=== PATIENT | female | born 1985 | race Caucasian/White ===

== ENCOUNTER 2019-10-02 12:47 | Emergency (ER) | payer MEDICAID ==
[2019-10-02] MEDS ORDERED: MORPHINE SULFATE 4 MG INJ IV ONE (14:04)
[2019-10-02] MEDS ORDERED: Zofran 4 MG/2 ML VIAL IV ONE (14:04)
[2019-10-02] MEDS ORDERED: Sodium Chloride 0.9% 1000 ML 1,000 ML IV SCH (14:15)
[2019-10-02 14:21] LABS: Absolute Neutrophil Ct (ANC) 14.49 (1.4-6.9); BASOPHIL % 0.2 % (0.0-0.4); Basophil (Absolute #) 0.04 (0-0.4); Eosinophil % 0.9 % (0.00-5.0); Eosinophil (Absolute #) 0.17 (0-0.5); Hematocrit 43.9 % (35-47); Hemoglobin 14.5 gm/dl (12.0-16.0); Lymphocyte (Absolute #) 1.99 (1.0-4.6); Mean Cell Volume 80.8 fl (78-100); Mean Corpuscular Hemoglobin 26.7 pg (26-32); Mean Platelet Volume 9.5 fl (7.5-11.0); Monocyte (Absolute #) 1.34 (0.0-1.3); Monocytes % 7.4 % (0.0-12.0); Neutrophil % 80.5 % (36.0-66.0); Platelet Count 305 K/mm3 (150-450); Red Blood Count 5.43 M/mm3 (4.1-5.4); Red Cell Distribution Width 14.3 % (11.5-14.0)
[2019-10-02] MEDS ORDERED: CLINDAMYCIN-D5W 900 MG/50 ML*** 900 MG/50 ML BAG IV STA (14:26)
[2019-10-02] MEDS ORDERED: Zofran 4 MG/2 ML VIAL ONE (14:29)
[2019-10-02] MEDS ORDERED: CLINDAMYCIN-D5W 900 MG/50 ML*** 900 MG/50 ML BAG IV ONE (14:29)
[2019-10-02] MEDS ORDERED: MORPHINE SULFATE 4 MG INJ ONE (14:29)
[2019-10-02] MEDS ORDERED: Sodium Chloride 0.9% 1000 ML 1,000 ML ONE (14:29)
[2019-10-02 14:31] LABS: ALBUMIN 4.1 g/dL (3.5-5.0); ALKALINE PHOSPHATASE 126 U/L (38-126); ANION GAP 10.8 MEQ/L (5-15); BLOOD UREA NITROGEN 9 mg/dL (7-17); CHLORIDE 107 mmol/L (98-107); Calcium 9.3 mg/dL (8.4-10.2); Carbon Dioxide 25 mmol/L (22-30); Creatinine 1 0.49 mg/dL (0.52-1.04); Glucose 100 mg/dL (74-106); Potassium 3.8 mmol/L (3.5-5.1); SGOT/AST 15 U/L (14-36); SGPT/ALT 14 U/L (0-35); SODIUM 139 mmol/L (137-145); Total Protein 7.7 g/dL (6.3-8.2)
--- NOTE | 2019-10-02 15:35 | ERPHSYRPT ---
- History of Present Illness Time Seen by Provider: 10/02/19 13:15 Source: patient Exam Limitations: no limitations Patient Subjective Stated Complaint: Pt states "About 4 days ago I started to get this infection on my left breast. It is large and red now." Triage Nursing Assessment: Pt presented alert and oriented X 3, skin pwd. Pt ambulates with an upright steady gait, able to ambulate with an upright steady gait. Physician History: Patient has 4-day history of pain swelling and abscess in the left breast just inferolateral to the nipple she has had as similar episodes on 2 occasions in the past which resolved spontaneously however this has grown in size it is surrounded by erythema. Timing/Duration: day(s) (4) Quality: painful Severity: severe Location: other (breast) Possible Causes: no cause identified Associated Symptoms: denies symptoms Allergies/Adverse Reactions: amoxicillin Allergy (Intermediate, Verified 10/02/19 13:07) Hives Hx Tetanus, Diphtheria Vaccination/Date Given: (unknown) Hx Influenza Vaccination/Date Given: No Hx Pneumococcal Vaccination/Date Given: No Immunizations Up to Date: Yes - Review of Systems Constitutional: No Fever, No Chills Eyes: No Symptoms Ears, Nose, & Throat: No Symptoms Respiratory: No Cough, No Dyspnea Cardiac: No Chest Pain, No Edema, No Syncope Abdominal/Gastrointestinal: No Abdominal Pain, No Nausea, No Vomiting, No Diarrhea Genitourinary Symptoms: No Dysuria Musculoskeletal: No Back Pain, No Neck Pain Skin: Other (Process with surrounding erythema left breast), No Rash Neurological: No Dizziness, No Focal Weakness, No Sensory Changes Psychological: No Symptoms Endocrine: No Symptoms All Other Systems: Reviewed and Negative - Past Medical History Pertinent Past Medical History: No - Past Surgical History Past Surgical History: No - Social History Smoking Status: Current every day smoker How long have you smoked: years Exposure to second hand smoke: Yes Drug Use: none Patient Lives Alone: No - Female History Hx Last Menstrual Period: 09/26/2019 Hx Now: (unknown) - Nursing Vital Signs Nursing Vital Signs: Initial Vital Signs Temperature 98.9 F 10/02/19 13:00 Pulse Rate 130 H 10/02/19 13:00 Respiratory Rate 20 10/02/19 13:00 Blood Pressure 143/96 10/02/19 13:00 O2 Sat by Pulse Oximetry 99 10/02/19 13:00 Pain Scale Pain Intensity 4 - Physical Exam General Appearance: no apparent distress, alert Eye Exam: PERRL/EOMI, eyes nml inspection Ears, Nose, Throat Exam: normal ENT inspection, pharynx normal, moist mucous membranes Neck Exam: normal inspection, non-tender, supple, full range of motion Respiratory Exam: normal breath sounds, lungs clear, No respiratory distress Cardiovascular Exam: regular rate/rhythm, normal heart sounds Gastrointestinal/Abdomen Exam: soft, mass, No tenderness Back Exam: normal inspection, normal range of motion, No CVA tenderness, No vertebral tenderness Extremity Exam: normal inspection, normal range of motion Neurologic Exam: alert, oriented x 3, cooperative, normal mood/affect, sensation nml, No motor deficits Skin Exam: other (Area of erythema and induration with central consistent with a large abscess left breast inferolateral to the nipple.) Lymphatic Exam: adenopathy SpO2 Interpretation: normal SpO2: 97 O2 Delivery: Room Air Procedures - Incision and Drainage Site: Breast Anesthesia: 1% Lidocaine cc's of anesthesia: 5 Blade Size: 11 I & D Procedure: betadine prep Results: large amount pus - Course Nursing assessment & vital signs reviewed: Yes Ordered Tests: Active Orders 24 hr Category Date Time Status BLOOD CULTURE Stat Lab 10/02/19 14:55 Received CBC W DIFF Stat Lab 10/02/19 14:04 Completed CMP Stat Lab 10/02/19 14:04 Completed Lactic Acid Stat Lab 10/02/19 14:04 Completed Medication Summary Generic Name Dose Route Start Last Admin Trade Name Freq PRN Reason Stop Dose Admin Sodium Chloride 1,000 mls @ 100 mls/hr 10/02/19 14:15 10/02/19 14:35 Sodium Chloride 0.9% 1000 Ml IV 11/01/19 14:14 100 mls/hr .Q10H ELANA Administration Discontinued Medications Generic Name Dose Route Start Last Admin Trade Name Freq PRN Reason Stop Dose Admin Clindamycin HCl/Dextrose 900 mg in 50 mls @ 100 mls/hr 10/02/19 14:26 14:34 Clindamycin-D5w 900 Mg/50 Ml IV 10/02/19 14:55 100 ml/hr STAT STA 100 mls/hr Administration Clindamycin HCl/Dextrose Confirm 10/02/19 14:29 Clindamycin-D5w 900 Mg/50 Ml Administered 10/02/19 14:30 Dose 900 mg in 50 mls @ ud IV .STK-MED ONE Morphine Sulfate 4 mg 10/02/19 14:04 10/02/19 14:34 Morphine Sulfate 4 Mg Inj IV 10/02/19 14:05 4 mg STAT ONE Administration Morphine Sulfate Confirm 10/02/19 14:29 Morphine Sulfate 4 Mg Inj Administered 10/02/19 14:30 Dose 4 mg .ROUTE .STK-MED ONE Ondansetron HCl 4 mg 10/02/19 14:04 10/02/19 14:35 Zofran 4 Mg/2 Ml Vial IV 10/02/19 14:05 4 mg STAT ONE Administration Ondansetron HCl Confirm 10/02/19 14:29 Zofran 4 Mg/2 Ml Vial Administered 10/02/19 14:30 Dose 4 mg .ROUTE .STK-MED ONE Lab/Rad Data: Laboratory Result Diagrams 10/02/19 14:04 10/02/19 14:04 Laboratory Results 10/02/19 10/02/19 10/02/19 Range/Units 14:04 14:04 14:04 WBC 18.0 H (4.0-10.5) K/mm3 RBC 5.43 H (4.1-5.4) M/mm3 Hgb 14.5 (12.0-16.0) gm/dl Hct 43.9 (35-47) % MCV 80.8 (78-100) fl MCH 26.7 (26-32) pg MCHC 33.0 (32-36) g/dl RDW 14.3 H (11.5-14.0) % Plt Count 305 (150-450) K/mm3 MPV 9.5 (7.5-11.0) fl Gran % 80.5 H (36.0-66.0) % Eos # (Auto) 0.17 (0-0.5) Absolute Lymphs (auto) 1.99 (1.0-4.6) Absolute Monos (auto) 1.34 H (0.0-1.3) Lymphocytes % 11.0 L (24.0-44.0) % Monocytes % 7.4 (0.0-12.0) % Eosinophils % 0.9 (0.00-5.0) % Basophils % 0.2 (0.0-0.4) % Absolute Granulocytes 14.49 H (1.4-6.9) Basophils # 0.04 (0-0.4) Sodium 139 (137-145) mmol/L Potassium 3.8 (3.5-5.1) mmol/L Chloride 107 (98-107) mmol/L Carbon Dioxide 25 (22-30) mmol/L Anion Gap 10.8 (5-15) MEQ/L BUN 9 (7-17) mg/dL Creatinine 0.49 L (0.52-1.04) mg/dL Estimated GFR > 60.0 ML/MIN Glucose 100 (74-106) mg/dL Lactic Acid 1.0 (0.4-2.0) Calcium 9.3 (8.4-10.2) mg/dL Total Bilirubin 0.60 (0.2-1.3) mg/dL AST 15 (14-36) U/L ALT 14 (0-35) U/L Alkaline Phosphatase 126 (38-126) U/L Serum Total Protein 7.7 (6.3-8.2) g/dL Albumin 4.1 (3.5-5.0) g/dL - Progress Progress: improved - Departure Departure Disposition: Home Clinical Impression: Abscess of breast Condition: Stable Critical Care Time: No Referrals: DOCTOR,NO FAMILY [Primary Care Provider] - Instructions: Abscess Incision and Drainage Prescriptions: Hydrocodone/APAP 5-325 Tab^^^ [[place] 5-325 Tablet^^^] 1 tab PO Q6HPRN PRN #10 tablet MDD 6 PRN Reason: Pain clindamycin HCL [Cleocin HCl] 300 mg PO TID 10 Days #30 capsule
[2019-10-02 16:13] VITALS: BP 136/74; PULSE 78; O2SAT 98
== END 2019-10-02 16:13 | disposition home or self-care (01) ==
LOC: ED 12:47
DX: N61.1 Abscess of the breast and nipple (principal); N64.4 Mastodynia; N63.23 Unspecified lump in the left breast, lower outer quadrant
CPT/HCPCS: 10060; 36000; 36415; 80053; 83605; 85025; 87040; 87070; 96360; 96365; 96374; 96375; 99284; J2270; J2405

== ENCOUNTER 2019-10-05 17:32 | Emergency (ER) | payer MEDICAID ==
[2019-10-05 18:15] VITALS: BP 138/87; PULSE 96; O2SAT 96
--- NOTE | 2019-10-05 18:34 | ERPHSYRPT ---
- History of Present Illness Time Seen by Provider: 10/05/19 18:30 Source: patient Exam Limitations: no limitations Patient Subjective Stated Complaint: pt here for a wound recheck of abscess to left breast, pt had I&D of breast with packing 3 days ago. she started on anitboitcs, Triage Nursing Assessment: pt alert, walked in, resp easy, skin w/d/p. pt has packing to left breast with a foul smell, she has dry drainage to gauze,this nurse took care of pt 3 days ago, and left breast less red and swollen,she has slughing of skin around packing site Physician History: Patient is a 34-year-old female presents to our ED for a wound check. Patient had a left breast incision and drainage performed 3 days ago. The wound was packed. Patient was discharged home on clindamycin. Patient has been doing well. The area of cellulitis appears to be improving. Patient has not followed up with a family doctor. She has been taking her antibiotics as prescribed. No fever. No nausea or vomiting. Pain is well controlled. Patient has no complaints. Timing/Duration: day(s) (3 days ago.) Severity: mild Associated Symptoms: denies symptoms Allergies/Adverse Reactions: amoxicillin Allergy (Intermediate, Verified 10/05/19 18:16) Hives Hx Tetanus, Diphtheria Vaccination/Date Given: (unknown) Hx Influenza Vaccination/Date Given: No Hx Pneumococcal Vaccination/Date Given: No Immunizations Up to Date: Yes - Review of Systems Constitutional: No Fever, No Chills Eyes: No Symptoms Ears, Nose, & Throat: No Symptoms Respiratory: No Symptoms, No Cough, No Dyspnea Cardiac: No Symptoms, No Chest Pain, No Edema, No Syncope Abdominal/Gastrointestinal: No Symptoms, No Abdominal Pain, No Nausea, No Vomiting, No Diarrhea Genitourinary Symptoms: No Symptoms, No Dysuria Musculoskeletal: No Symptoms, No Back Pain, No Neck Pain Skin: No Symptoms, No Rash Neurological: No Symptoms, No Dizziness, No Focal Weakness, No Sensory Changes Psychological: No Symptoms Endocrine: No Symptoms Hematologic/Lymphatic: No Symptoms All Other Systems: Reviewed and Negative - Past Medical History Pertinent Past Medical History: No - Past Surgical History Past Surgical History: No - Social History Smoking Status: Current every day smoker How long have you smoked: years Exposure to second hand smoke: Yes Drug Use: none Patient Lives Alone: No - Female History Hx Last Menstrual Period: 09/15 Hx Now: No - Nursing Vital Signs Nursing Vital Signs: Initial Vital Signs Pulse Rate 96 H 10/05/19 18:06 Respiratory Rate 18 10/05/19 18:06 Blood Pressure 138/87 10/05/19 18:06 O2 Sat by Pulse Oximetry 96 10/05/19 18:06 Pain Scale Pain Intensity 1 - Physical Exam General Appearance: no apparent distress, alert Eye Exam: PERRL/EOMI, eyes nml inspection Ears, Nose, Throat Exam: normal ENT inspection, TMs normal, pharynx normal, moist mucous membranes Neck Exam: normal inspection, non-tender, supple, full range of motion Respiratory Exam: normal breath sounds, lungs clear, No respiratory distress Cardiovascular Exam: regular rate/rhythm, normal heart sounds, normal peripheral pulses Gastrointestinal/Abdomen Exam: soft, normal bowel sounds, No tenderness, No mass Back Exam: normal inspection, normal range of motion, No CVA tenderness, No vertebral tenderness Extremity Exam: normal inspection, normal range of motion, pelvis stable Neurologic Exam: alert, oriented x 3, cooperative, normal mood/affect, nml cerebellar function, nml station & gait, sensation nml, No motor deficits Skin Exam: normal color, warm, dry, other (Left breast wound healing well. There is some exited the wound base. There is good granular tissue. No purulent drainage. ), No rash Lymphatic Exam: No adenopathy SpO2 Interpretation: normal SpO2: 96 O2 Delivery: Room Air - Progress Progress: improved Progress Note: 10/05/19 20:20 The wound is a healing well. Cellulitis much improved. Packing removed. No indication for repacking at this time. There was necrotic skin that was removed. Patient sent to wound clinic for further evaluation and treatment. Counseled pt/family regarding: diagnosis, need for follow-up - Departure Departure Disposition: Home Clinical Impression: Visit for wound check, Abscess of breast Condition: Stable Critical Care Time: No Referrals: DOCTOR,NO FAMILY [Primary Care Provider] - Additional Instructions: Discharge/Care Plan CLEMENTINAPRINCE WILLS was seen on 10/05/19 in the Emergency Room. The patient was counseled regarding Diagnosis,Lab results, Imaging studies, need for follow up and when to return to the Emergency Room. Prescriptions given: Discharge Note I have spoken with the patient and/or caregivers. I have explained the patient' s condition, diagnosis and treatment plan based on the information available to me at this time. I have answered the patient's and/or caregiver's questions and addressed any concerns. The patient and/or caregivers have as good understanding of the patient's diagnosis, condition and treatment plan as can be expected at this point. The vital signs have been stable. The patient's condition is stable and appropriate for discharge from the emergency department. The patient will pursue further outpatient evaluation with the primary care physician or other designated or consulting physician as outlined in the discharge instructions. The patient and/or caregivers are agreeable to this plan of care and follow-up instructions have been explained in detail. The patient and/or caregivers have received these instruction. The patient/and or caregivers are aware that any significant change in condition or worsening of symptoms should prompt an immediate return to this or the closest emergency department or call 911.
== END 2019-10-05 18:48 | disposition home or self-care (01) ==
LOC: ED 17:32
DX: Z48.01 Encounter for change or removal of surgical wound dressing (principal); N61.1 Abscess of the breast and nipple
CPT/HCPCS: 99283

== ENCOUNTER 2022-09-02 16:04 | Emergency (ER) | payer MEDICAID ==
--- NOTE | 2022-09-02 16:11 | ERPHSYRPT ---
- History of Present Illness Time Seen by Provider: 09/02/22 16:10 Source: patient Exam Limitations: no limitations Physician History: This is a 36-year-old overweight white female who has recurrent abscesses of the breast and axilla in the past and presents with a hint of a left axillary swelling and a significant right axillary abscess. History was obtained from the patient directly as well as additional history from the patient's significant other. Patient denies fever. She denies redness but noticed increased swelling and abscess in the right axilla. Timing/Duration: day(s) (Last 2 to 3 days) Quality: painful Severity: mild (To moderate) Location: axillary (R) Possible Causes: no cause identified Allergies/Adverse Reactions: amoxicillin Allergy (Intermediate, Verified 10/05/19 18:16) Hives Hx Tetanus, Diphtheria Vaccination/Date Given: (unknown) Hx Influenza Vaccination/Date Given: No Hx Pneumococcal Vaccination/Date Given: No Travel Risk - International Travel Have you traveled outside of the country in past 3 weeks: No - Coronavirus Screening Are you exhibiting any of the following symptoms?: No Close contact with a COVID-19 positive Pt in past 14-21 Days: No - Review of Systems Constitutional: No Symptoms Eyes: No Symptoms Ears, Nose, & Throat: No Symptoms Respiratory: No Symptoms Cardiac: No Symptoms Abdominal/Gastrointestinal: No Symptoms Genitourinary Symptoms: No Symptoms Musculoskeletal: No Symptoms Skin: Other (Moderately large abscess right axilla. Induration left axilla) Neurological: No Symptoms Psychological: No Symptoms Endocrine: No Symptoms Hematologic/Lymphatic: No Symptoms Immunological/Allergic: No Symptoms All Other Systems: Reviewed and Negative - Past Medical History Pertinent Past Medical History: No - Past Surgical History Past Surgical History: No - Social History Smoking Status: Current every day smoker How long have you smoked: years Exposure to second hand smoke: Yes Drug Use: none Patient Lives Alone: No - Nursing Vital Signs Nursing Vital Signs: Initial Vital Signs Temperature 97.8 F 09/02/22 16:10 Pulse Rate 130 H 09/02/22 16:10 Respiratory Rate 22 09/02/22 16:10 Blood Pressure 188/102 09/02/22 16:10 O2 Sat by Pulse Oximetry 98 09/02/22 16:10 Pain Scale Pain Intensity 6 - Physical Exam General Appearance: no apparent distress, alert, anxiety Eye Exam: PERRL/EOMI, eyes nml inspection Ears, Nose, Throat Exam: normal ENT inspection, moist mucous membranes Neck Exam: normal inspection, non-tender, supple, full range of motion Respiratory Exam: airway intact, No chest tenderness, No respiratory distress Cardiovascular Exam: tachycardia Gastrointestinal/Abdomen Exam: No tenderness Pelvic Exam: not done Rectal Exam: not done Back Exam: normal inspection, normal range of motion, No CVA tenderness, No vertebral tenderness Neurologic Exam: alert, oriented x 3, cooperative, still worker helper II-XII nml as tested, normal mood/affect, nml cerebellar function, nml station & gait, sensation nml Skin Exam: normal color, warm, dry Lymphatic Exam: No adenopathy SpO2 Interpretation: normal O2 Delivery: Room Air Procedures - Incision and Drainage Time of Procedure: 16:30 Site: Right axilla Anesthesia: 1% Lidocaine cc's of anesthesia: 3 Blade Size: 15 I & D Procedure: betadine prep Results: moderate amount pus Ordered Tests: Active Orders 24 hr Category Date Time Status Wound Care STAT Care 09/02/22 16:36 Ordered CULTURE,WOUND Stat Lab 09/02/22 16:36 Ordered Medication Summary Generic Name Dose Route Start Last Admin Trade Name Freq PRN Reason Stop Dose Admin Hydrocodone Bitart/Acetaminophen 1 tab 09/02/22 16:37 Hydrocodone/Apap 5/325 1 Tab Tablet PO 09/02/22 16:38 STAT ONE Trimethoprim/Sulfamethoxazole 1 tab 09/02/22 16:37 Smz/Tmp Ds Tablet 1 Tablet PO 09/02/22 16:38 STAT ONE - Progress Progress: improved Progress Note: 09/02/22 16:54 Medical decision making: This patient's medical issue today is of low complexity. She has a right axillary abscess. Based on the physical exam findings we opted for incision and drainage with culture of the pus that you did from the wound. We sent this for culture. Discharge plan was discussed with the patient which included placement of packing into the wound twice a day and using Bactrim DS antibiotics. She was told to make sure she does not allow the skin edges to close over before the deeper pocket heals in from the inside out. Counseled pt/family regarding: diagnosis, need for follow-up - Departure Departure Disposition: Home Clinical Impression: Abscess of right axilla Condition: Stable Critical Care Time: No Referrals: DOCTOR,NO FAMILY [Primary Care Provider] - Follow up/PCP as directed Additional Instructions: Packed the wound as discussed twice a day. Make sure you compress the area in the shower. Make sure you remove the packing before you get into the shower. Take your antibiotics as prescribed. Follow-up with your primary care provider for continued management. Prescriptions: Hydrocodone/APAP 5/325 [[place] 5/325 mg] 1 each PO Q8H PRN PRN #6 tablet MDD 3 PRN Reason: Pain Smz/Tmp Ds Tablet [Bactrim Ds Tablet] 1 udtab PO BID #14 tablet
[2022-09-02 16:17] VITALS: BP 188/102; PULSE 130; O2SAT 98
[2022-09-02] MEDS ORDERED: BACTRIM DS TABLET PO ONE ×2 (16:37→16:40)
[2022-09-02] MEDS ORDERED: NORCO 5/325 MG PO ONE (16:37)
[2022-09-02] MEDS ORDERED: NORCO 5/325 MG ONE (16:40)
== END 2022-09-02 17:05 | disposition home or self-care (01) ==
LOC: ED 16:04
DX: L02.411 Cutaneous abscess of right axilla (principal); Z79.891 Long term (current) use of opiate analgesic; Z72.0 Tobacco use
CPT/HCPCS: 10060; 87070; 99283; A9270-GY

== ENCOUNTER 2022-09-07 16:24 | Emergency (ER) | payer MEDICAID ==
--- NOTE | 2022-09-07 16:59 | ERPHSYRPT ---
- History of Present Illness Time Seen by Provider: 09/07/22 16:54 Source: patient, family Exam Limitations: no limitations Physician History: Patient is 36-year-old female came to the emergency room with the swelling and abscess on her right axilla for which patient was seen in the emergency room few days ago at that time small incision was put on to drain it and patient was put on antibiotic for 10 days. Patient states that the area where incision was put on has healed and now there is a swelling there and she feels like it is spreading under the skin. She denies any other symptoms include fever chills nausea vomiting headache. She denies any redness around the swelling. Timing/Duration: day(s) Associated Symptoms: denies symptoms Allergies/Adverse Reactions: amoxicillin Allergy (Intermediate, Verified 10/05/19 18:16) Hives Hx Tetanus, Diphtheria Vaccination/Date Given: (unknown) Hx Influenza Vaccination/Date Given: No Hx Pneumococcal Vaccination/Date Given: No Travel Risk - Vaccine Status Have you recieved a Covid-19 vaccination: No - Review of Systems Constitutional: No Fever, No Chills Eyes: No Symptoms Ears, Nose, & Throat: No Symptoms Respiratory: No Cough, No Dyspnea Cardiac: No Chest Pain, No Edema, No Syncope Abdominal/Gastrointestinal: No Abdominal Pain, No Nausea, No Vomiting, No Diarrhea Genitourinary Symptoms: No Dysuria Musculoskeletal: No Back Pain, No Neck Pain Skin: Induration (right axilla), No Rash Neurological: No Dizziness, No Focal Weakness, No Sensory Changes Psychological: No Symptoms Endocrine: No Symptoms All Other Systems: Reviewed and Negative - Past Medical History Pertinent Past Medical History: No - Past Surgical History Past Surgical History: No - Social History Smoking Status: Current every day smoker How long have you smoked: years Exposure to second hand smoke: Yes Drug Use: none Patient Lives Alone: No - Physical Exam General Appearance: no apparent distress Eye Exam: PERRL/EOMI Ears, Nose, Throat Exam: normal ENT inspection Neck Exam: normal inspection Respiratory Exam: normal breath sounds Cardiovascular Exam: regular rate/rhythm Gastrointestinal/Abdomen Exam: soft Back Exam: normal inspection Extremity Exam: normal inspection Neurologic Exam: alert, oriented x 3 (right axillary abscess, closed) - Course Nursing assessment & vital signs reviewed: Yes - Progress Progress: unchanged Counseled pt/family regarding: diagnosis, need for follow-up Medical Desision Making - Diagnostic Testing Diagnostic Testing: Diagnostic tests were ordered,analyzed, and reviewed by me and used in my medical decision making for this patient. Radiologic studies (if ordered) were read by me initially then discussed with the radiologist . - Risk of complications Minimal Risk: Minimal risk of morbidity - Departure Departure Disposition: Home Clinical Impression: Abscess of right axilla Condition: Stable Critical Care Time: No Referrals: DOCTOR,NO FAMILY [Primary Care Provider] - Follow up/PCP as directed Instructions: Skin Abscess Additional Instructions: Continue antibiotic. Keep the area clean with Betadine. Put a warm compress. Follow-up with primary care physician in 1 day or 2. You may require surgical attention by surgeon for further treatment. Discharge/Care Plan PRINCE MCRAE was seen on 09/07/22 in the Emergency Room. The patient was counseled regarding Diagnosis,Lab results, Imaging studies, need for follow up and when to return to the Emergency Room. Prescriptions given: Discharge Note I have spoken with the patient and/or caregivers. I have explained the patient's condition, diagnosis and treatment plan based on the information available to me at this time. I have answered the patient's and/or caregiver's questions and addressed any concerns. The patient and/or caregivers have as good understanding of the patient's diagnosis, condition and treatment plan as can be expected at this point. The vital signs have been stable. The patient's condition is stable and appropriate for discharge from the emergency department. The patient will pursue further outpatient evaluation with the primary care physician or other designated or consulting physician as outlined in the discharge instructions. The patient and/or caregivers are agreeable to this plan of care and follow-up instructions have been explained in detail. The patient and/or caregivers have received these instruction. The patient/and or caregivers are aware that any significant change in condition or worsening of symptoms should prompt an immediate return to this or the closest emergency department or call 911. PRINCE MCRAE was seen on 09/07/22 n the Emergency Room. At that time you were treated for an emergent condition, during your visit Laboratory, Radiology and/or other procedures may have been ordered. It is very important that you follow-up with your Primary Care Physician NO FAMILY DOCTOR within the next 24-48 hours to review your Emergency Room visit and the final results of testing that was ordered. Some test results such as Urine Cultures, Blood Cultures, and other cultures if ordered will not be finalized for 24-48 hours. If you do not have a Primary Care Provider please call the medical records department at [phone] ext [phone] to obtain a copy of your results or you may sign into our patient portal to obtain these results by visiting us @ [email or web address] and completing the following steps: 1. Click on the Patient Portal link 2. Click the Patient Self Enrollment Link to complete the enrollment form and entering your 3. Once the enrollment form is completed you will receive an email with a temporary ID and password at the email address you provided. 4. Next choose a user name and password. Your user name must be at least 4 characters long and your password must be at least 4 characters long. 5. Choose a security question from the list and provide your answer to the question. If you already have signed into the Health Portal you may access your Health Care Information 16/02 by the following steps: 1. Login to our website @ [email or web address] 2. Enter your original user name and password. FAQS The [facility] Health Portal is an online tool that contains your Lab Results, Radiology Reports, Visit History, Discharge Instructions and Health Summary Lab and Radiology Results will not be available for 72 hours on the portal. The Portal is a secure site, passwords are encryted and URLs are re-written so they cannot be copied and pasted. You and authorized family members are the only ones who can access your Portal. Also there is a timeout feature that protects your information if you leave the Portal page open. If you have technical difficulty please use the Contact Us link on the page this will allow you to submit any questions you have regarding the Portal or you may contact the Medical Record Department at [phone] ext [phone]. Prescriptions: Smz/Tmp Ds Tablet [Bactrim Ds Tablet] 1 udtab PO BID #20 tablet
[2022-09-07 17:26] VITALS: BP 170/124; PULSE 87; O2SAT 98
== END 2022-09-07 17:26 | disposition home or self-care (01) ==
LOC: ED 16:24
DX: L02.411 Cutaneous abscess of right axilla (principal); Z28.310 Unvaccinated for COVID-19; Z72.0 Tobacco use
CPT/HCPCS: 99281

== ENCOUNTER 2025-06-28 10:24 | Observation (INO) | payer MEDICAID ==
--- NOTE | 2025-06-28 10:29 | ERPHSYRPT ---
- History of Present Illness Time Seen by Provider: 06/28/25 10:27 Source: patient, family Exam Limitations: no limitations Physician History: This is a morbidly obese 39-year-old white female patient who denies past medical history and presents by private vehicle accompanied by family with increasing shortness of breath and increasing bilateral lower extremity swelling over the last 3 weeks. Her symptoms of swelling and shortness of breath were worse this morning. She went to urgent care where she was found to have a room air oxygen saturation level of 85 to 86%. Patient was then sent to our facility where upon arrival her room air oxygen saturation was 100%. She denies chest pain. She denies fever. She denies cough. Her heart rate was 129 bpm on arrival to the emergency department. She feels short of breath even though her oxygen saturation level is at 100%. She did states she had a single episode of severe back pain earlier over the last 3 weeks. Patient denies bleeding and clotting disorders. Patient also denies long travel via car or plane. Timing/Duration: week(s) (5), worse (Symptoms worse this morning) Severity of Dyspnea-Max: moderate Severity of Dyspnea-Current: moderate Possible Cause: no prior episodes Modifying Factors: Improves With: activity (Worsens), rest (Improves) Associated Symptoms: edema, No chest pain/discomfort, No wheezing Allergies/Adverse Reactions: amoxicillin Allergy (Intermediate, Verified 06/28/25 10:29) Hives Home Medications: No Reportable Medications [No Reported Medications] 06/28/25 [History] Hx Tetanus, Diphtheria Vaccination/Date Given: (unknown) Hx Influenza Vaccination/Date Given: No Hx Pneumococcal Vaccination/Date Given: No Travel Risk - International Travel Have you traveled outside of the country in past 3 weeks: No - Emerging Infectious Disease Are you exhibiting symptoms associated with any current EIDs: No Symptoms: Shortness of Breath - Review of Systems Constitutional: No Symptoms Eyes: No Symptoms Ears, Nose, & Throat: No Symptoms Respiratory: Dyspnea, Dyspnea on Exertion ([place]) Cardiac: No Symptoms Abdominal/Gastrointestinal: No Symptoms Genitourinary Symptoms: No Symptoms Musculoskeletal: No Symptoms Skin: No Symptoms Neurological: No Symptoms Psychological: No Symptoms Endocrine: No Symptoms Hematologic/Lymphatic: No Symptoms Immunological/Allergic: No Symptoms All Other Systems: Reviewed and Negative - Past Medical History Pertinent Past Medical History: No - Past Surgical History Past Surgical History: No - Social History Smoking Status: Current every day smoker How long have you smoked: years Exposure to second hand smoke: Yes Drug Use: none Patient Lives Alone: No - Nursing Vital Signs Nursing Vital Signs: Initial Vital Signs Temperature 97.8 F 06/28/25 10:25 Pulse Rate 126 H 06/28/25 10:25 Respiratory Rate 18 06/28/25 10:25 Blood Pressure 196/159 06/28/25 10:25 O2 Sat by Pulse Oximetry 100 06/28/25 10:25 Pain Scale Pain Intensity 0 - Physical Exam General Appearance: mild distress, alert, anxiety, obese Eye Exam: PERRL/EOMI, eyes nml inspection Ears, Nose, Throat Exam: hearing grossly normal, normal ENT inspection, normal pharynx Neck Exam: normal inspection, non-tender, supple, full range of motion Respiratory Exam: normal breath sounds, lungs clear, airway intact, No chest tenderness, No respiratory distress Cardiovascular/Chest Exam: tachycardia Abdominal/Gastrointestinal Exam: soft, normal bowel sounds, No tenderness Rectal Exam: not done Extremity Exam: normal range of motion, pedal edema (Patient has nonpitting edema from her feet to lower pannus of the abdomen) Neurologic Exam: alert, oriented x 3, cooperative, supervisor special services II-XII nml as tested, nml cerebellar function, nml station & gait, sensation nml Skin Exam: normal color, warm, dry Lymphatic Exam: No adenopathy SpO2 Interpretation: normal O2 Delivery: Room Air - Course Nursing assessment & vital signs reviewed: Yes EKG Interpreted by Me: RATE (124), Sinus Tach, NORMAL AXIS, NORMAL INTERVALS, Other (I see no acute ischemic changes on today's twelve-lead EKG. QTc is 443) Ordered Tests: Active Orders 24 hr Category Date Time Status Account Technician STAT Care 06/28/25 10:31 Active EKG-ER Only STAT Care 06/28/25 10:29 Completed IV Insertion STAT Care 06/28/25 10:29 Active Pulse Oximetry (ED) STAT Care 06/28/25 10:29 Active CHEST WITH CONTRAST [CT] Stat Exams 06/28/25 11:54 Completed VENOUS BILATERAL EXTREMITY [US] Stat Exams 06/28/25 11:55 Completed ARTERIAL BLOOD GASES Stat Lab 06/28/25 11:16 Completed BLOOD CULTURE Stat Lab 06/28/25 11:14 Received CBC W DIFF Stat Lab 06/28/25 11:07 Completed CMP Stat Lab 06/28/25 11:07 Completed CULTURE,URINE Stat Lab 06/28/25 10:51 Received D-DIMER QUANTITATIVE Stat Lab 06/28/25 11:07 Completed HCG QUALITATIVE, SERUM Stat Lab 06/28/25 Completed Lactic Acid Stat Lab 06/28/25 11:16 Completed MAGNESIUM Stat Lab 06/28/25 11:07 Completed NT PRO BNPII Stat Lab 06/28/25 11:07 Completed PROTIME WITH INR Stat Lab 06/28/25 11:07 Completed PTT Stat Lab 06/28/25 11:07 Completed TROPONIN Q4H Lab 06/28/25 11:07 Completed TROPONIN Q4H Lab 06/28/25 13:55 Completed TROPONIN Q4H Lab 06/28/25 18:30 Ordered UA W/RFX UR CULTURE Stat Lab 06/28/25 10:51 Completed Medication Summary Generic Name Dose Route Start Last Admin Trade Name Freq PRN Reason Stop Dose Admin Sodium Chloride 250 mls @ 250 mls/hr 06/28/25 12:00 06/28/25 13:37 Sodium Chloride 0.9% 250 Ml IV 06/28/25 12:59 Infused .Q1H ELANA Infusion Discontinued Medications Generic Name Dose Route Start Last Admin Trade Name Freq PRN Reason Stop Dose Admin Furosemide 40 mg 06/28/25 13:41 06/28/25 13:58 Furosemide 40 Mg/4 Ml Vial IV 06/28/25 13:42 40 mg STAT ONE Administration Furosemide Confirm 06/28/25 13:57 Furosemide 40 Mg/4 Ml Vial Administered 06/28/25 13:58 Dose 40 mg .ROUTE .STK-MED ONE Labetalol HCl 10 mg 06/28/25 11:41 06/28/25 11:45 Labetalol Hcl 20 Mg/4 Ml Disp.Syringe IV 06/28/25 11:42 10 mg STAT ONE Administration Labetalol HCl Confirm 06/28/25 11:44 Labetalol Hcl 20 Mg/4 Ml Disp.Syringe Administered 06/28/25 11:45 Dose 20 mg IV .STK-MED ONE Labetalol HCl 10 mg 06/28/25 13:35 06/28/25 13:36 Labetalol Hcl 20 Mg/4 Ml Disp.Syringe IV 06/28/25 13:36 10 mg STAT ONE Administration Lab/Rad Data: Laboratory Result Diagrams 06/28/25 11:07 06/28/25 11:07 Laboratory Results 06/28/25 06/28/25 06/28/25 Range/Units Unknown 13:55 11:18 WBC (3.98-10.04) x10^3/uL RBC (3.93-5.22) x10^6/uL Hgb (11.2-15.7) g/dL Hct (34.1-44.9) % MCV (79.4-94.8) fL MCH (25.6-32.2) pg MCHC (32.2-35.5) g/dL RDW (11.7-14.4) % Plt Count (182-369) x10^3/uL MPV (9.4-12.3) fL Gran % (34.0-71.1) % Immature Gran % (Auto) (0.001-0.429) % Nucleat RBC Rel Count (0.00-0.2) % Eos # (Auto) (0.04-0.36) x10^3/uL Immature Gran # (Auto) (0.001-0.031) x10^3u/L Absolute Lymphs (auto) (1.18-3.74) x10^3/uL Absolute Monos (auto) (0.24-0.86) x10^3/uL Absolute Nucleated RBC (0.00-0.012) x10^3u/L Lymphocytes % (19.3-51.7) % Monocytes % (4.7-12.5) % Eosinophils % (0.7-5.8) % Basophils % (0.1-1.2) % Absolute Granulocytes (1.56-6.13) x10^3/uL Basophils # (0.01-0.08) x10^3/uL PT (9.4-12.5) SECONDS INR (0.8-3.0) APTT (25.1-36.5) SECONDS D-Dimer (0.0-0.50) mg/L Puncture Site pCO2 (35-45) mmHg pO2 (75-100) mmHg Base Excess (-2.0-2.0) O2 Saturation (94-100) g/dF ABG pH (7.35-7.45) ABG HCO3 (22-28) ABG O2 Sat (Measured) (95-100) % Fabiano Test A-a Gradient a/A Ratio Hemoglobin Carboxyhemoglobin (0.0-6.9) % THgb Methemoglobin (1.4-1.5) % Temperature C POC O2 Flow Rate % Sodium (135-145) mmol/L Potassium (3.5-5.1) mmol/L Chloride (98-107) mmol/L Carbon Dioxide (22-30) mmol/L Anion Gap (5-15) MEQ/L BUN (7-17) mg/dL Creatinine (0.52-1.04) mg/dL Estimated GFR ML/MIN Glucose (74-106) mg/dL Lactic Acid (0.4-2.0) Calcium (8.4-10.2) mg/dL Magnesium (1.6-2.3) mg/dL Total Bilirubin (0.2-1.3) mg/dL AST (14-36) U/L ALT (0-35) U/L Alkaline Phosphatase (38-126) U/L Troponin I 0.025 (0.000-0.033) ng/mL NT-Pro-B Natriuret Pep (<300) pg/mL Serum Total Protein (6.3-8.2) g/dL Albumin (3.5-5.0) g/dL Serum HCG, Qual NEGATIVE (NEGATIVE) Urine Color (Yellow) Urine Appearance (Clear) Urine pH (4.6-8.0) Ur Specific [place] (1.005-1.030) Urine Protein (Negative) Urine Glucose (UA) (Negative) mg/dL Urine Ketones (Negative) Urine Blood (Negative) Urine Nitrite (Negative) Urine Bilirubin (Negative) Urine Urobilinogen (0.2) mg/dL Ur Leukocyte Esterase (Negative) U Hyaline Cast (Auto) (0-2) /LPF Urine Microscopic RBC (0-5) /HPF Urine Microscopic WBC (0-5) /HPF Ur Epithelial Cells (None Seen) /HPF Urine Bacteria (None Seen) /HPF Urine Culture Reflexed (NO) Influenza Type A Ag NEGATIVE (NEGATIVE) Influenza Type B Ag NEGATIVE (NEGATIVE) RSV (PCR) NEGATIVE (NEGATIVE) SARS-CoV-2 (PCR) NEGATIVE (NEGATIVE) Slides for Path Review 06/28/25 06/28/2525 Range/Units 11:16 11:07 11:07 WBC (3.98-10.04) x10^3/uL RBC (3.93-5.22) x10^6/uL Hgb (11.2-15.7) g/dL Hct (34.1-44.9) % MCV (79.4-94.8) fL MCH (25.6-32.2) pg MCHC (32.2-35.5) g/dL RDW (11.7-14.4) % Plt Count (182-369) x10^3/uL MPV (9.4-12.3) fL Gran % (34.0-71.1) % Immature Gran % (Auto) (0.001-0.429) % Nucleat RBC Rel Count (0.00-0.2) % Eos # (Auto) (0.04-0.36) x10^3/uL Immature Gran # (Auto) (0.001-0.031) x10^3u/L Absolute Lymphs (auto) (1.18-3.74) x10^3/uL Absolute Monos (auto) (0.24-0.86) x10^3/uL Absolute Nucleated RBC (0.00-0.012) x10^3u/L Lymphocytes % (19.3-51.7) % Monocytes % (4.7-12.5) % Eosinophils % (0.7-5.8) % Basophils % (0.1-1.2) % Absolute Granulocytes (1.56-6.13) x10^3/uL Basophils # (0.01-0.08) x10^3/uL PT 13.0 H (9.4-12.5) SECONDS INR 1.17 (0.8-3.0) APTT 22.2 L (25.1-36.5) SECONDS D-Dimer 1.27 H* (0.0-0.50) mg/L Puncture Site LEFT RADIAL pCO2 27 L (35-45) mmHg pO2 106 H (75-100) mmHg Base Excess -1.6 (-2.0-2.0) O2 Saturation 94.1 (94-100) g/dF ABG pH 7.49 H (7.35-7.45) ABG HCO3 20.6 L (22-28) ABG O2 Sat (Measured) 98.7 (95-100) % Fabiano Test YES A-a Gradient 10 a/A Ratio 0.91 Hemoglobin 12.2 Carboxyhemoglobin 3.9 (0.0-6.9) % THgb Methemoglobin 0.8 L (1.4-1.5) % Temperature 37.0 C POC O2 Flow Rate 21 % Sodium (135-145) mmol/L Potassium 3.8 (3.5-5.1) mmol/L Chloride (98-107) mmol/L Carbon Dioxide (22-30) mmol/L Anion Gap (5-15) MEQ/L BUN (7-17) mg/dL Creatinine (0.52-1.04) mg/dL Estimated GFR ML/MIN Glucose (74-106) mg/dL Lactic Acid 1.3 (0.4-2.0) Calcium (8.4-10.2) mg/dL Magnesium (1.6-2.3) mg/dL Total Bilirubin (0.2-1.3) mg/dL AST (14-36) U/L ALT (0-35) U/L Alkaline Phosphatase (38-126) U/L Troponin I 0.032 (0.000-0.033) ng/mL NT-Pro-B Natriuret Pep (<300) pg/mL Serum Total Protein (6.3-8.2) g/dL Albumin (3.5-5.0) g/dL Serum HCG, Qual (NEGATIVE) Urine Color (Yellow) Urine Appearance (Clear) Urine pH (4.6-8.0) Ur Specific [place] (1.005-1.030) Urine Protein (Negative) Urine Glucose (UA) (Negative) mg/dL Urine Ketones (Negative) Urine Blood (Negative) Urine Nitrite (Negative) Urine Bilirubin (Negative) Urine Urobilinogen (0.2) mg/dL Ur Leukocyte Esterase (Negative) U Hyaline Cast (Auto) (0-2) /LPF Urine Microscopic RBC (0-5) /HPF Urine Microscopic WBC (0-5) /HPF Ur Epithelial Cells (None Seen) /HPF Urine Bacteria (None Seen) /HPF Urine Culture Reflexed (NO) Influenza Type A Ag (NEGATIVE) Influenza Type B Ag (NEGATIVE) RSV (PCR) (NEGATIVE) SARS-CoV-2 (PCR) (NEGATIVE) Slides for Path Review 06/28/25 06/28/25 06/28/25 Range/Units 11:07 11:07 10:51 WBC 13.3 H (3.98-10.04) x10^3/uL RBC 5.42 H (3.93-5.22) x10^6/uL Hgb 11.9 (11.2-15.7) g/dL Hct 41.7 (34.1-44.9) % MCV 76.9 L (79.4-94.8) fL MCH 22.0 L (25.6-32.2) pg MCHC 28.5 L (32.2-35.5) g/dL RDW 17.0 H (11.7-14.4) % Plt Count 419 H (182-369) x10^3/uL MPV 9.4 (9.4-12.3) fL Gran % 68.4 (34.0-71.1) % Immature Gran % (Auto) 0.4 (0.001-0.429) % Nucleat RBC Rel Count 0.8 H (0.00-0.2) % Eos # (Auto) 0.14 (0.04-0.36) x10^3/uL Immature Gran # (Auto) 0.05 H (0.001-0.031) x10^3u/L Absolute Lymphs (auto) 3.19 (1.18-3.74) x10^3/uL Absolute Monos (auto) 0.71 (0.24-0.86) x10^3/uL Absolute Nucleated RBC 0.11 H (0.00-0.012) x10^3u/L Lymphocytes % 24.0 (19.3-51.7) % Monocytes % 5.3 (4.7-12.5) % Eosinophils % 1.1 (0.7-5.8) % Basophils % 0.8 (0.1-1.2) % Absolute Granulocytes 9.11 H (1.56-6.13) x10^3/uL Basophils # 0.10 H (0.01-0.08) x10^3/uL PT (9.4-12.5) SECONDS INR (0.8-3.0) APTT (25.1-36.5) SECONDS D-Dimer (0.0-0.50) mg/L Puncture Site pCO2 (35-45) mmHg pO2 (75-100) mmHg Base Excess (-2.0-2.0) O2 Saturation (94-100) g/dF ABG pH (7.35-7.45) ABG HCO3 (22-28) ABG O2 Sat (Measured) (95-100) % Fabiano Test A-a Gradient a/A Ratio Hemoglobin Carboxyhemoglobin (0.0-6.9) % THgb Methemoglobin (1.4-1.5) % Temperature C POC O2 Flow Rate % Sodium 135 (135-145) mmol/L Potassium 3.8 (3.5-5.1) mmol/L Chloride 103 (98-107) mmol/L Carbon Dioxide 22 (22-30) mmol/L Anion Gap 14.4 (5-15) MEQ/L BUN 19 H (7-17) mg/dL Creatinine 1.17 H (0.52-1.04) mg/dL Estimated GFR 61.6 ML/MIN Glucose 129 H (74-106) mg/dL Lactic Acid (0.4-2.0) Calcium 9.1 (8.4-10.2) mg/dL Magnesium 2.1 (1.6-2.3) mg/dL Total Bilirubin 0.70 (0.2-1.3) mg/dL AST 73 H (14-36) U/L ALT 139 H (0-35) U/L Alkaline Phosphatase 144 H (38-126) U/L Troponin I (0.000-0.033) ng/mL NT-Pro-B Natriuret Pep 66612 (<300) pg/mL Serum Total Protein 7.1 (6.3-8.2) g/dL Albumin 3.8 (3.5-5.0) g/dL Serum HCG, Qual (NEGATIVE) Urine Color Dark Yellow A (Yellow) Urine Appearance Cloudy A (Clear) Urine pH 5.5 (4.6-8.0) Ur Specific [place] 1.025 (1.005-1.030) Urine Protein 300 A (Negative) Urine Glucose (UA) Negative (Negative) mg/dL Urine Ketones Negative (Negative) Urine Blood Negative (Negative) Urine Nitrite Negative (Negative) Urine Bilirubin Small A (Negative) Urine Urobilinogen 1.0 A (0.2) mg/dL Ur Leukocyte Esterase Negative (Negative) U Hyaline Cast (Auto) 11-20 (0-2) /LPF Urine Microscopic RBC 0-2 (0-5) /HPF Urine Microscopic WBC 21-50 A (0-5) /HPF Ur Epithelial Cells Moderate A (None Seen) /HPF Urine Bacteria Moderate A (None Seen) /HPF Urine Culture Reflexed YES (NO) Influenza Type A Ag (NEGATIVE) Influenza Type B Ag (NEGATIVE) RSV (PCR) (NEGATIVE) SARS-CoV-2 (PCR) (NEGATIVE) Slides for Path Review YES - Progress Progress: re-examined Air Movement: fair Progress Note: 06/28/25 10:49 My medical decision making and the assignment of high complexity of this patient's medical issue today is based on review of the patient's past medical history, reviewed patient's medication list, reviewed patient drug allergy list, history present illness and physical findings on examination. The workup in this patient includes placement of an intravenous line, CBC, CMP, COVID swabs, chest x-ray versus CT a of the chest depending on the D-dimer level, BNP, troponin level, twelve-lead EKG. Will also order urinalysis test. Differential diagnosis includes but is not limited to congestive heart failure, renal failure, DVT, pulmonary embolus, myocardial infarction, arrhythmia, electrolyte abnormalities 06/28/25 15:26 I interpreted the patient's laboratory data results. Based on the laboratory data results, patient has significant CHF, significant elevation in her liver enzymes she also had a significantly elevated D-dimer level and we obtained CT scan of the chest with contrast and bilateral lower extremity venous Dopplers. Patient also has significant hypertension. The following radiographic studies final reports were interpreted by the radiologist and I reviewed the impression: Bilateral lower extremity venous Dopplers are negative for left and right DVT. The CT scan of the chest with contrast is negative for pulmonary embolus. There are no acute cardiopulmonary processes. There is abdominal anasarca and cardiomegaly present. I spoke with Dr. Reese, the telehospitalist is recreational specialist at this time. I reviewed the patient history, presenting complaint, physical findings on examination and workup results. He accepts the patient to be placed in observation. Blood Culture(s) Obtained: Yes Antibiotics given: No Counseled pt/family regarding: lab results, diagnosis, rad results Medical Desision Making - Independent Historian Additional History obtained from: Family - Diagnostic Testing Diagnostic test were ordered, analyzed, and reviewed by me: Yes Radiological Interpretation: Reviewed by me, Teleradiologist Report - Risk of complications The pt has a high risk of morbidity or mortality based on: Decision regarding hospitilization or escalation of hosp level of care - Departure Departure Disposition: Observation Clinical Impression: CHF (congestive heart failure), Hypertension, Tachycardia, Elevated LFTs Condition: Fair Critical Care Time: Yes Critical Care Time(excluding separately billable procedures): Critical 30-74 mins (50) Referrals: DOCTOR,NO FAMILY [Primary Care Provider, UNKNOWN] - Follow up/PCP as directed Instructions: Heart Failure
[2025-06-28 11:21] LABS: A-aADO2 10; ABG HEMOGLOBIN 12.2; ABG POTASSIUM 3.8 (3.5-5.1); ARTERIAL BLD GAS O2 SATURATION 98.7 % (95-100); ARTERIAL BLOOD GAS BASE EXCESS -1.6 (-2.0-2.0); ARTERIAL BLOOD GAS FIO2 21 %; ARTERIAL BLOOD GAS PCO2 27 mmHg (35-45); ARTERIAL BLOOD GAS PO2 106 mmHg (75-100); ARTERIAL BLOOD GAS TEMPERATURE 37.0 C; HCO3- 20.6 (22-28); HGB O2 SAT 94.1 g/dF (94-100); Methhemoglobin 0.8 % (1.4-1.5); paO2 pAO1 0.91
[2025-06-28 11:22] LABS: ABG SITE LEFT RADIAL; ALLEN TEST OK? YES
[2025-06-28 11:22] LABS: BASOPHIL % 0.8 % (0.1-1.2); Basophil (Absolute #) 0.10 x10^3/uL (0.01-0.08); Eosinophil (Absolute #) 0.14 x10^3/uL (0.04-0.36); Hematocrit 41.7 % (34.1-44.9); Hemoglobin 11.9 g/dL (11.2-15.7); IMMATURE GRAN # 0.05 x10^3u/L (0.001-0.031); IMMATURE GRAN % 0.4 % (0.001-0.429); Lymphocyte (Absolute #) 3.19 x10^3/uL (1.18-3.74); Mean Corpuscular Hemoglobin 22.0 pg (25.6-32.2); Mean Corpuscular Hgb Concent. 28.5 g/dL (32.2-35.5); Monocyte (Absolute #) 0.71 x10^3/uL (0.24-0.86); NUCLEATED RBC # 0.11 x10^3u/L (0.00-0.012); NUCLEATED RBC % 0.8 % (0.00-0.2); Platelet Count 419 x10^3/uL (182-369); Red Blood Count 5.42 x10^6/uL (3.93-5.22); White Blood Count 13.3 x10^3/uL (3.98-10.04)
[2025-06-28 11:44] LABS: INR 1.17 (0.8-3.0); PROTIME 13.0 SECONDS (9.4-12.5); PTT 22.2 SECONDS (25.1-36.5)
[2025-06-28] MEDS ORDERED: TRANDATE 20 MG/4 ML SYRINGE IV ONE ×2 (11:44→21:23)
[2025-06-28 11:45] LABS: Calcium 9.1 mg/dL (8.4-10.2); Carbon Dioxide 22.0 mmol/L (22-30); Creatinine 1 1.17 mg/dL (0.52-1.04); EST GLOMERULAR FILTRATION RATE 61.6 ML/MIN; Glucose 129.0 mg/dL (74-106); NT PRO BNPII 13700.0 pg/mL (<300); Potassium 3.8 mmol/L (3.5-5.1); SGOT/AST 73.0 U/L (14-36); SGPT/ALT 139.0 U/L (0-35); Total Protein 7.1 g/dL (6.3-8.2)
[2025-06-28] MEDS: TRANDATE 20 MG/4 ML SYRINGE IV ONE ×2 (11:45→13:36)
[2025-06-28 11:53] LABS: Slide Review 1 YES
[2025-06-28 12:01] LABS: INFLUENZA A NEGATIVE (NEGATIVE); INFLUENZA B NEGATIVE (NEGATIVE); RESPIRATORY SYNCTIAL VIRUS NEGATIVE (NEGATIVE); SARS-CoV-2 Xpert Express NEGATIVE (NEGATIVE)
[2025-06-28 12:18] LABS: HCG SERUM TEST NEGATIVE (NEGATIVE)
[2025-06-28 12:50] LABS: Glucose, Urine Negative (Negative); Protein,Urine Dip 300 (Negative); RBC 0-2 /HPF (0-5); WBC 21-50 /HPF (0-5)
--- NOTE | 2025-06-28 13:56 | XRAY ---
Indication: Short of breath. Elevated D-dimer. Two-dimensional sonogram and color Doppler imaging major venous vessels left and right leg performed. Comparison: None No thrombus seen in the examined deep venous vessels left and right leg including greater saphenous vein. Veins demonstrate normal compressibility. Venous waveforms are normal with and without augmentation. Impression: Left and right leg negative for DVT.
[2025-06-28] MEDS ORDERED: Lasix 40 MG/4 ML ONE (13:57)
[2025-06-28] MEDS: Lasix 40 MG/4 ML IV ONE (13:58)
--- NOTE | 2025-06-28 14:28 | XRAY ---
Indication: Short of breath. Elevated D-dimer. Multiple contiguous axial images obtained through the chest using 80 cc Isovue 370 contrast and PE protocol. Comparison: None Good opacification pulmonary arteries to include lobar and segmental branches. No pulmonary embolus. Heart is enlarged. Prominent right epicardiac fat. Aorta is normal in course and caliber. No pathologic mediastinal/hilar lymphadenopathy. Lungs demonstrates mild right middle lobe subsegmental atelectasis/scarring. No suspicious pulmonary mass/nodule, infiltrate, or effusion. Bony thorax intact. Limited upper abdomen demonstrates fatty liver. Visualized abdomen demonstrates diffuse anasarca. Impression: 1. Negative pulmonary embolus. No acute cardiopulmonary abnormalities. 2. Incidental cardiomegaly, right middle lobe atelectasis/scarring, fatty liver, and abdominal anasarca.
[2025-06-28] MEDS ORDERED: Zofran 4 MG/2 ML VIAL IV PRN (16:24)
[2025-06-28] MEDS ORDERED: TYLENOL 325 MG PO PRN (16:24)
--- NOTE | 2025-06-28 16:34 | PCM.HP ---
History of Present Illness - Chief Complaint Chief Complaint: CHF Date: 06/28/25 History of Present Illness: is a 39-year-old female with a history of smoking (1-07 27/2 ppd), daily headaches managed with ibuprofen (2-3 tabs per day), morbid obesity, and insomnia who presented to the emergency department with worsening shortness of breath and bilateral lower extremity swelling over the past three weeks, with symptoms acutely worse this morning. At urgent care, her room air oxygen saturation was 8586%, but upon arrival to our facility it was 100%. She denied chest pain, fever, cough, bleeding or clotting disorders, and recent long travel. She reported a single episode of severe back pain within the past three weeks. On arrival, her heart rate was 129 bpm, and she continued to feel short of breath despite normal oxygen saturation. In the ER, she received Lasix 40 mg IV, 250 mL IV normal saline, and two doses of IV labetalol for elevated blood pressure. Blood pressure remains elevated, and lisinopril has been initiated. D- dimer was elevated at 1.27, but chest CTA was negative for pulmonary embolism, instead showing cardiomegaly, fatty liver, and anasarca. She reports snoring at night, suggesting possible undiagnosed sleep apnea. Admission labs revealed glucose 129, with A1c pending, AST 73, ALT 139, and BNP markedly elevated at 13,700. Troponins were negative on two occasions. Urinalysis was positive for urinary tract infection, and antibiotic was started; blood cultures are pending. - Review of Systems Constitutional: No Fever, No Chills Eyes: No Symptoms Ears, Nose, & Throat: No Symptoms Respiratory: Short Of Breath, No Cough Cardiac: Edema (Abd and BLLE), No Chest Pain, No Syncope Abdominal/Gastrointestinal: No Abdominal Pain, No Nausea, No Vomiting, No Diarrhea Genitourinary Symptoms: No Dysuria Musculoskeletal: No Back Pain, No Neck Pain Skin: No Rash Neurological: No Dizziness, No Focal Weakness, No Sensory Changes Psychological: No Symptoms Endocrine: No Symptoms Hematologic/Lymphatic: No Symptoms Immunological/Allergic: No Symptoms Medications & Allergies Home Medications: Home Medication List Ibuprofen 200 mg [Motrin 200 mg] 800 mg PO Q4HPRN PRN 06/28/25 [History Confirmed 06/28/25] Pamabrom [Diurex Max] 50 mg PO Q5H PRN 06/28/25 [History Confirmed 06/28/25] diphenhydrAMINE HCL [Sleep Aid] 100 mg PO HS 06/28/25 [History Confirmed 06/28/25] Allergies/Adverse Reactions: Allergies Allergy/AdvReac Type Severity Reaction Status Date / Time amoxicillin Allergy Intermediate Hives Verified 06/28/25 16:52 - Past Medical History Past Medical History: No Pyscho-Social History: Anxiety Comment: Hx of cysts - Female History Are you now?: No - Past Surgical History Past Surgical History: No Significant Family History: no pertinent family hx - Social History Smoking Status: Current every day smoker How long have you smoked: years Exposure to second hand smoke: Yes Alcohol: None Drug Use: none - Social Determinants of Health Will the patient participate in the screening: Declined to provide - Physical Exam Vital Signs: Vital Signs - 24 hr Temp Pulse Resp BP BP Pulse Ox 06/28/25 16:00 110 H 22 190/144 98 06/28/25 15:58 206/134 100 06/28/25 15:52 97 06/28/25 15:40 194/135 100 06/28/25 15:30 97 H 20 184/134 100 06/28/25 15:20 176/143 97 06/28/25 15:10 94 H 166/133 100 06/28/25 15:00 185/138 06/28/25 14:50 177/144 99 06/28/25 14:40 177/140 100 06/28/25 14:31 179/127 99 06/28/25 14:20 158/124 100 06/28/25 14:10 175/124 89 L 06/28/25 14:00 88 20 164/127 100 06/28/25 13:50 87 20 181/137 100 06/28/25 13:41 86 24 193/127 100 06/28/25 13:40 97 H 22 172/126 06/28/25 13:33 98 H 23 196/135 100 06/28/25 13:30 96 H 24 100 06/28/25 13:20 94 H 21 100 06/28/25 13:14 90 179/127 100 06/28/25 12:50 100 06/28/25 12:40 99 06/28/25 12:30 99 06/28/25 12:23 100 06/28/25 12:10 174/140 100 06/28/25 12:01 22 98 06/28/25 12:00 179/124 100 06/28/25 11:50 89 22 181/141 100 06/28/25 11:40 116 H 215/164 100 06/28/25 11:30 117 H 223/161 100 06/28/25 11:20 117 H 21 224/161 100 06/28/25 11:10 118 H 25 H 06/28/25 11:01 118 H 22 06/28/25 10:53 119 H 21 06/28/25 10:41 122 H 24 239/156 99 06/28/25 10:32 122 H 22 196/159 99 06/28/25 10:29 100 06/28/25 10:26 241/166 98 06/28/25 10:25 97.8 F 126 H 18 196/159 100 General Appearance: no apparent distress, alert, obese Neurologic Exam: alert, oriented x 3, cooperative, normal mood/affect, nml cerebellar function, nml station & gait, sensation nml, No motor deficits Eye Exam: PERRL/EOMI, eyes nml inspection Ears, Nose, Throat Exam: normal ENT inspection, TMs normal, pharynx normal, moist mucous membranes Neck Exam: normal inspection, non-tender, supple, full range of motion Respiratory Exam: normal breath sounds, lungs clear, No respiratory distress Cardiovascular Exam: regular rate/rhythm, normal heart sounds, normal peripheral pulses, edema (+ 3 BLLE and abdomen) Gastrointestinal/Abdomen Exam: soft, normal bowel sounds, distention, No tenderness, No mass Back Exam: normal inspection, normal range of motion, No CVA tenderness, No vertebral tenderness Extremity Exam: normal inspection, normal range of motion, pelvis stable Skin Exam: normal color, warm, dry, No rash Lymphatic Exam: No adenopathy Results - Labs Lab/Micro Results: Lab Results-Last 24 Hours 06/28/25 06/28/25 06/28/25 Range/Units 10:51 11:07 11:07 WBC 13.3 H (3.98-10.04) x10^3/uL RBC 5.42 H (3.93-5.22) x10^6/uL Hgb 11.9 (11.2-15.7) g/dL Hct 41.7 (34.1-44.9) % MCV 76.9 L (79.4-94.8) fL MCH 22.0 L (25.6-32.2) pg MCHC 28.5 L (32.2-35.5) g/dL RDW 17.0 H (11.7-14.4) % Plt Count 419 H (182-369) x10^3/uL MPV 9.4 (9.4-12.3) fL Gran % 68.4 (34.0-71.1) % Immature Gran % (Auto) 0.4 (0.001-0.429) % Nucleat RBC Rel Count 0.8 H (0.00-0.2) % Eos # (Auto) 0.14 (0.04-0.36) x10^3/uL Immature Gran # (Auto) 0.05 H (0.001-0.031) x10^3u/L Absolute Lymphs (auto) 3.19 (1.18-3.74) x10^3/uL Absolute Monos (auto) 0.71 (0.24-0.86) x10^3/uL Absolute Nucleated RBC 0.11 H (0.00-0.012) x10^3u/L Lymphocytes % 24.0 (19.3-51.7) % Monocytes % 5.3 (4.7-12.5) % Eosinophils % 1.1 (0.7-5.8) % Basophils % 0.8 (0.1-1.2) % Absolute Granulocytes 9.11 H (1.56-6.13) x10^3/uL Basophils # 0.10 H (0.01-0.08) x10^3/uL PT (9.4-12.5) SECONDS INR (0.8-3.0) APTT (25.1-36.5) SECONDS D-Dimer (0.0-0.50) mg/L Puncture Site pCO2 (35-45) mmHg pO2 (75-100) mmHg Base Excess (-2.0-2.0) O2 Saturation (94-100) g/dF ABG pH (7.35-7.45) ABG HCO3 (22-28) ABG O2 Sat (Measured) (95-100) % Fabiano Test A-a Gradient a/A Ratio Hemoglobin Carboxyhemoglobin (0.0-6.9) % THgb Methemoglobin (1.4-1.5) % Temperature C POC O2 Flow Rate % Sodium 135 (135-145) mmol/L Potassium 3.8 (3.5-5.1) mmol/L Chloride 103 (98-107) mmol/L Carbon Dioxide 22 (22-30) mmol/L Anion Gap 14.4 (5-15) MEQ/L BUN 19 H (7-17) mg/dL Creatinine 1.17 H (0.52-1.04) mg/dL Estimated GFR 61.6 ML/MIN Glucose 129 H (74-106) mg/dL Lactic Acid (0.4-2.0) Calcium 9.1 (8.4-10.2) mg/dL Magnesium 2.1 (1.6-2.3) mg/dL Total Bilirubin 0.70 (0.2-1.3) mg/dL AST 73 H (14-36) U/L ALT 139 H (0-35) U/L Alkaline Phosphatase 144 H (38-126) U/L Troponin I (0.000-0.033) ng/mL NT-Pro-B Natriuret Pep 17034 (<300) pg/mL Serum Total Protein 7.1 (6.3-8.2) g/dL Albumin 3.8 (3.5-5.0) g/dL Serum HCG, Qual (NEGATIVE) Urine Color Dark Yellow A (Yellow) Urine Appearance Cloudy A (Clear) Urine pH 5.5 (4.6-8.0) Ur Specific [place] 1.025 (1.005-1.030) Urine Protein 300 A (Negative) Urine Glucose (UA) Negative (Negative) mg/dL Urine Ketones Negative (Negative) Urine Blood Negative (Negative) Urine Nitrite Negative (Negative) Urine Bilirubin Small A (Negative) Urine Urobilinogen 1.0 A (0.2) mg/dL Ur Leukocyte Esterase Negative (Negative) U Hyaline Cast (Auto) 11-20 (0-2) /LPF Urine Microscopic RBC 0-2 (0-5) /HPF Urine Microscopic WBC 21-50 A (0-5) /HPF Ur Epithelial Cells Moderate A (None Seen) /HPF Urine Bacteria Moderate A (None Seen) /HPF Urine Culture Reflexed YES (NO) Influenza Type A Ag (NEGATIVE) Influenza Type B Ag (NEGATIVE) RSV (PCR) (NEGATIVE) SARS-CoV-2 (PCR) (NEGATIVE) Slides for Path Review YES 06/28/25 06/28/25 06/28/25 Range/Units 11:07 11:07 11:16 WBC (3.98-10.04) x10^3/uL RBC (3.93-5.22) x10^6/uL Hgb (11.2-15.7) g/dL Hct (34.1-44.9) % MCV (79.4-94.8) fL MCH (25.6-32.2) pg MCHC (32.2-35.5) g/dL RDW (11.7-14.4) % Plt Count (182-369) x10^3/uL MPV (9.4-12.3) fL Gran % (34.0-71.1) % Immature Gran % (Auto) (0.001-0.429) % Nucleat RBC Rel Count (0.00-0.2) % Eos # (Auto) (0.04-0.36) x10^3/uL Immature Gran # (Auto) (0.001-0.031) x10^3u/L Absolute Lymphs (auto) (1.18-3.74) x10^3/uL Absolute Monos (auto) (0.24-0.86) x10^3/uL Absolute Nucleated RBC (0.00-0.012) x10^3u/L Lymphocytes % (19.3-51.7) % Monocytes % (4.7-12.5) % Eosinophils % (0.7-5.8) % Basophils % (0.1-1.2) % Absolute Granulocytes (1.56-6.13) x10^3/uL Basophils # (0.01-0.08) x10^3/uL PT 13.0 H (9.4-12.5) SECONDS INR 1.17 (0.8-3.0) APTT 22.2 L (25.1-36.5) SECONDS D-Dimer 1.27 H* (0.0-0.50) mg/L Puncture Site LEFT RADIAL pCO2 27 L (35-45) mmHg pO2 106 H (75-100) mmHg Base Excess -1.6 (-2.0-2.0) O2 Saturation 94.1 (94-100) g/dF ABG pH 7.49 H (7.35-7.45) ABG HCO3 20.6 L (22-28) ABG O2 Sat (Measured) 98.7 (95-100) % Fabiano Test YES A-a Gradient 10 a/A Ratio 0.91 Hemoglobin 12.2 Carboxyhemoglobin 3.9 (0.0-6.9) % THgb Methemoglobin 0.8 L (1.4-1.5) % Temperature 37.0 C POC O2 Flow Rate 21 % Sodium (135-145) mmol/L Potassium 3.8 (3.5-5.1) mmol/L Chloride (98-107) mmol/L Carbon Dioxide (22-30) mmol/L Anion Gap (5-15) MEQ/L BUN (7-17) mg/dL Creatinine (0.52-1.04) mg/dL Estimated GFR ML/MIN Glucose (74-106) mg/dL Lactic Acid 1.3 (0.4-2.0) Calcium (8.4-10.2) mg/dL Magnesium (1.6-2.3) mg/dL Total Bilirubin (0.2-1.3) mg/dL AST (14-36) U/L ALT (0-35) U/L Alkaline Phosphatase (38-126) U/L Troponin I 0.032 (0.000-0.033) ng/mL NT-Pro-B Natriuret Pep (<300) pg/mL Serum Total Protein (6.3-8.2) g/dL Albumin (3.5-5.0) g/dL Serum HCG, Qual (NEGATIVE) Urine Color (Yellow) Urine Appearance (Clear) Urine pH (4.6-8.0) Ur Specific [place] (1.005-1.030) Urine Protein (Negative) Urine Glucose (UA) (Negative) mg/dL Urine Ketones (Negative) Urine Blood (Negative) Urine Nitrite (Negative) Urine Bilirubin (Negative) Urine Urobilinogen (0.2) mg/dL Ur Leukocyte Esterase (Negative) U Hyaline Cast (Auto) (0-2) /LPF Urine Microscopic RBC (0-5) /HPF Urine Microscopic WBC (0-5) /HPF Ur Epithelial Cells (None Seen) /HPF Urine Bacteria (None Seen) /HPF Urine Culture Reflexed (NO) Influenza Type A Ag (NEGATIVE) Influenza Type B Ag (NEGATIVE) RSV (PCR) (NEGATIVE) SARS-CoV-2 (PCR) (NEGATIVE) Slides for Path Review 06/28/25 06/28/25 06/28/25 Range/Units 11:18 13:55 Unknown WBC (3.98-10.04) x10^3/uL RBC (3.93-5.22) x10^6/uL Hgb (11.2-15.7) g/dL Hct (34.1-44.9) % MCV (79.4-94.8) fL MCH (25.6-32.2) pg MCHC (32.2-35.5) g/dL RDW (11.7-14.4) % Plt Count (182-369) x10^3/uL MPV (9.4-12.3) fL Gran % (34.0-71.1) % Immature Gran % (Auto) (0.001-0.429) % Nucleat RBC Rel Count (0.00-0.2) % Eos # (Auto) (0.04-0.36) x10^3/uL Immature Gran # (Auto) (0.001-0.031) x10^3u/L Absolute Lymphs (auto) (1.18-3.74) x10^3/uL Absolute Monos (auto) (0.24-0.86) x10^3/uL Absolute Nucleated RBC (0.00-0.012) x10^3u/L Lymphocytes % (19.3-51.7) % Monocytes % (4.7-12.5) % Eosinophils % (0.7-5.8) % Basophils % (0.1-1.2) % Absolute Granulocytes (1.56-6.13) x10^3/uL Basophils # (0.01-0.08) x10^3/uL PT (9.4-12.5) SECONDS INR (0.8-3.0) APTT (25.1-36.5) SECONDS D-Dimer (0.0-0.50) mg/L Puncture Site pCO2 (35-45) mmHg pO2 (75-100) mmHg Base Excess (-2.0-2.0) O2 Saturation (94-100) g/dF ABG pH (7.35-7.45) ABG HCO3 (22-28) ABG O2 Sat (Measured) (95-100) % Fabiano Test A-a Gradient a/A Ratio Hemoglobin Carboxyhemoglobin (0.0-6.9) % THgb Methemoglobin (1.4-1.5) % Temperature C POC O2 Flow Rate % Sodium (135-145) mmol/L Potassium (3.5-5.1) mmol/L Chloride (98-107) mmol/L Carbon Dioxide (22-30) mmol/L Anion Gap (5-15) MEQ/L BUN (7-17) mg/dL Creatinine (0.52-1.04) mg/dL Estimated GFR ML/MIN Glucose (74-106) mg/dL Lactic Acid (0.4-2.0) Calcium (8.4-10.2) mg/dL Magnesium (1.6-2.3) mg/dL Total Bilirubin (0.2-1.3) mg/dL AST (14-36) U/L ALT (0-35) U/L Alkaline Phosphatase (38-126) U/L Troponin I 0.025 (0.000-0.033) ng/mL NT-Pro-B Natriuret Pep (<300) pg/mL Serum Total Protein (6.3-8.2) g/dL Albumin (3.5-5.0) g/dL Serum HCG, Qual NEGATIVE (NEGATIVE) Urine Color (Yellow) Urine Appearance (Clear) Urine pH (4.6-8.0) Ur Specific [place] (1.005-1.030) Urine Protein (Negative) Urine Glucose (UA) (Negative) mg/dL Urine Ketones (Negative) Urine Blood (Negative) Urine Nitrite (Negative) Urine Bilirubin (Negative) Urine Urobilinogen (0.2) mg/dL Ur Leukocyte Esterase (Negative) U Hyaline Cast (Auto) (0-2) /LPF Urine Microscopic RBC (0-5) /HPF Urine Microscopic WBC (0-5) /HPF Ur Epithelial Cells (None Seen) /HPF Urine Bacteria (None Seen) /HPF Urine Culture Reflexed (NO) Influenza Type A Ag NEGATIVE (NEGATIVE) Influenza Type B Ag NEGATIVE (NEGATIVE) RSV (PCR) NEGATIVE (NEGATIVE) SARS-CoV-2 (PCR) NEGATIVE (NEGATIVE) Slides for Path Review - Radiology Impressions Radiology Exams & Impressions: Radiology Procedures Category Date Time Status CHEST WITH CONTRAST [CT] Stat Exams 06/28/25 11:54 Completed ECHO W/2D AND DOPPLER [US] Routine Exams 06/28/25 16:25 Ordered VENOUS BILATERAL EXTREMITY [US] Stat Exams 06/28/25 11:55 Completed - Other Procedures and Tests Respiratory Therapy 06/28/25 16:24 EKG REPEAT IN AM Assessment/Plan (1) CHF (congestive heart failure) Current Visit: Yes Status: Acute Assessment & Plan: - BNP 13,700 - Stop IBP - EKG - ECHO - TELE - + Smoker - UDS - Trops X2 negative- trend - Cardiology consult - Lasix IV daily - Strict I&O's - Up with assist - CTA reviwed - +3 BLLE edema- VD negative for DVT Code(s): I50.9 - HEART FAILURE, UNSPECIFIED (2) UTI (urinary tract infection) Current Visit: Yes Status: Acute Assessment & Plan: - Macrobid BID - UA reviewed - UC pending - CBC, CMP reviewed - WBC 13.3 - BC x2 pending Code(s): N39.0 - URINARY TRACT INFECTION, SITE NOT SPECIFIED (3) Leukocytosis Current Visit: Yes Status: Acute Assessment & Plan: - + UTI - WBC 13.3 - Flu/COVID/RSV negative - CBC, CMP reviwed - Radiology results reviewed Code(s): D72.829 - ELEVATED WHITE BLOOD CELL COUNT, UNSPECIFIED (4) Transaminitis Current Visit: Yes Status: Acute Assessment & Plan: - AST 73, ALT 139 - 2:2 CHF Code(s): R74.01 - ELEVATION OF LEVELS OF LIVER TRANSAMINASE LEVELS (5) Hypertension Current Visit: Yes Status: Acute Assessment & Plan: - Labetalol gave IV x2 in ER - Lisinopril started - Trend BP Code(s): I10 - ESSENTIAL (PRIMARY) HYPERTENSION (6) JULIANN (acute kidney injury) Current Visit: Yes Status: Acute Assessment & Plan: - Creat 1.17- trend - Receiving lasix - Received 250ml fluid bolus in ER Code(s): N17.9 - ACUTE KIDNEY FAILURE, UNSPECIFIED (7) D-dimer, elevated Current Visit: Yes Status: Acute Assessment & Plan: - D-Dimer 1.27 - RA 99% - CTA : Impression: 1. Negative pulmonary embolus. No acute cardiopulmonary abnormalities. 2. Incidental cardiomegaly, right middle lobe atelectasis/scarring, fatty liver, and abdominal anasarca. Code(s): R79.89 - OTHER SPECIFIED ABNORMAL FINDINGS OF BLOOD CHEMISTRY (8) Anasarca Current Visit: Yes Status: Acute Assessment & Plan: - As seen on CT - Lasix IV - Strict I&O's - Tele - 2:2 CHF Code(s): R60.1 - GENERALIZED EDEMA (9) Cardiomegaly Current Visit: Yes Status: Acute Assessment & Plan: - As seen on CTA - Echo - HX of lound snoring, chronic morbid obesity, and smoker Code(s): I51.7 - CARDIOMEGALY (10) Obstructive sleep apnea Current Visit: Yes Status: Acute Assessment & Plan: - Will order OP sleep study - + Loud snoring at night per Code(s): G47.33 - OBSTRUCTIVE SLEEP APNEA (ADULT) (PEDIATRIC) (11) Hyperglycemia Current Visit: Yes Status: Acute Assessment & Plan: - Glucose on admission 129 - A1C Code(s): R73.9 - HYPERGLYCEMIA, UNSPECIFIED (12) Fatty liver Current Visit: Yes Status: Acute Assessment & Plan: - As seen on CTA - F/U OP Code(s): K76.0 - FATTY (CHANGE OF) LIVER, NOT ELSEWHERE CLASSIFIED (13) Tachycardia Current Visit: Yes Status: Acute Assessment & Plan: - Tele - 2:2 CHF- see plan above - Trend - EKG - Echo Code(s): R00.0 - TACHYCARDIA, UNSPECIFIED (14) Smoker Current Visit: Yes Status: Chronic Assessment & Plan: - Advised cessation - Education provided Code(s): F17.200 - NICOTINE DEPENDENCE, UNSPECIFIED, UNCOMPLICATED (15) Insomnia Current Visit: Yes Status: Chronic Assessment & Plan: - Start seroquel At HS - Has been taking 2 OTC sleep aides at night every night that includes Benadryl. Code(s): G47.00 - INSOMNIA, UNSPECIFIED (16) Chronic headaches Current Visit: Yes Status: Acute Assessment & Plan: - Likely 2:2 sleep apnea and HTN- see plans above - Stop IBP - Tylenol PRN Code(s): R51.9 - HEADACHE, UNSPECIFIED; G89.29 - OTHER CHRONIC PAIN (17) Morbid obesity with BMI of 50.0-59.9, adult Current Visit: Yes Status: Chronic Assessment & Plan: - Advised diet and exercise control VTE: Lovenox PPI: Protonix Next of KIN: Code status: Full D/C Plan: 2-3 days Plan of care time > 50 minutes Code(s): E66.01 - MORBID (SEVERE) OBESITY DUE TO EXCESS CALORIES; Z68.43 - BODY MASS INDEX [BMI] 50.0-59.9, ADULT
[2025-06-28] MEDS: Macrobid 100MG Capsule PO SCH (17:38)
[2025-06-28] MEDS: Nicoderm CQ 21 MG TOP SCH (17:38)
[2025-06-28] MEDS: APRESOLINE 20 MG/ML INJ IV ONE (17:39)
[2025-06-28 17:44] LABS: Barbiturate,Urine NEGATIVE (NEGATIVE); Benzodiazepine,Urine NEGATIVE (NEGATIVE); Cocaine,Urine NEGATIVE (NEGATIVE); Methadone,Urine NEGATIVE (NEGATIVE); Opiate,Urine NEGATIVE (NEGATIVE); PCP,Urine NEGATIVE (NEGATIVE); THC,Urine NEGATIVE (NEGATIVE)
[2025-06-28 17:49] LABS: Amphetamine,Urine NEGATIVE (NEGATIVE)
[2025-06-28] MEDS: Zestril 10 MG PO STA (18:04)
[2025-06-28] MEDS: APRESOLINE 20 MG/ML INJ IV PRN (20:33)
[2025-06-28] MEDS: TYLENOL 325 MG PO PRN (22:35)
[2025-06-28] MEDS: Seroquel 25 MG PO SCH (22:36)
[2025-06-28] MEDS: TRANDATE 20 MG/4 ML SYRINGE IV PRN (22:36)
[2025-06-28] MEDS: HEPARIN 5000 UNITS/0.5 ML (HIGH RISK MED) SQ SCH (22:36)
[2025-06-28] MEDS: Zestril 10 MG PO ONE (22:36)
[2025-06-29 05:02] LABS: BASOPHIL % 0.6 % (0.1-1.2); Basophil (Absolute #) 0.08 x10^3/uL (0.01-0.08); Eosinophil (Absolute #) 0.24 x10^3/uL (0.04-0.36); Hematocrit 41.9 % (34.1-44.9); Hemoglobin 11.7 g/dL (11.2-15.7); IMMATURE GRAN # 0.05 x10^3u/L (0.001-0.031); IMMATURE GRAN % 0.4 % (0.001-0.429); Lymphocyte (Absolute #) 3.38 x10^3/uL (1.18-3.74); Mean Corpuscular Hemoglobin 21.1 pg (25.6-32.2); Mean Corpuscular Hgb Concent. 27.9 g/dL (32.2-35.5); Monocyte (Absolute #) 0.87 x10^3/uL (0.24-0.86); NUCLEATED RBC # 0.04 x10^3u/L (0.00-0.012); NUCLEATED RBC % 0.3 % (0.00-0.2); Platelet Count 377 x10^3/uL (182-369); Red Blood Count 5.54 x10^6/uL (3.93-5.22); White Blood Count 12.9 x10^3/uL (3.98-10.04)
[2025-06-29 05:25] LABS: Calcium 8.8 mg/dL (8.4-10.2); Carbon Dioxide 25.0 mmol/L (22-30); Creatinine 1 0.93 mg/dL (0.52-1.04); EST GLOMERULAR FILTRATION RATE 81.2 ML/MIN; Glucose 82.0 mg/dL (74-106); Potassium 3.2 mmol/L (3.5-5.1); SGOT/AST 56.0 U/L (14-36); SGPT/ALT 114.0 U/L (0-35); Total Protein 6.6 g/dL (6.3-8.2)
[2025-06-29] MEDS: POTASSIUM CHLORIDE 20 mEq IN WATER 100ML 20 MEQ/100 ML BAG IV ONE (06:56)
[2025-06-29 07:41] LABS: Slide Review 1 YES
[2025-06-29] MEDS: Zestril 20 MG PO ONE (08:55)
[2025-06-29] MEDS ORDERED: Zestril 10 MG PO SCH (10:00)
[2025-06-29] MEDS: Lasix 40 MG/4 ML IV SCH (10:32)
[2025-06-29] MEDS: Protonix 20MG Tablet PO SCH (10:33)
--- NOTE | 2025-06-29 11:49 | PCM.NOTE ---
Date and Time: 06/29/25 1142 Subjective Assessment: 06/28/25 is a 39-year-old female with a history of smoking (1-1 /2 ppd), daily headaches managed with ibuprofen (2-3 tabs per day), morbid obesity, and insomnia who presented to the emergency department with worsening shortness of breath and bilateral lower extremity swelling over the past three weeks, with symptoms acutely worse this morning. At urgent care, her room air oxygen saturation was 8586%, but upon arrival to our facility it was 100%. She denied chest pain, fever, cough, bleeding or clotting disorders, and recent long travel. She reported a single episode of severe back pain within the past three weeks. On arrival, her heart rate was 129 bpm, and she continued to feel short of breath despite normal oxygen saturation. In the ER, she received Lasix 40 mg IV, 250 mL IV normal saline, and two doses of IV labetalol for elevated blood pressure. Blood pressure remains elevated, and lisinopril has been initiated. D- dimer was elevated at 1.27, but chest CTA was negative for pulmonary embolism, instead showing cardiomegaly, fatty liver, and anasarca. She reports snoring at night, suggesting possible undiagnosed sleep apnea. Admission labs revealed glucose 129, with A1c pending, AST 73, ALT 139, and BNP markedly elevated at 13,700. Troponins were negative on two occasions. Urinalysis was positive for urinary tract infection, and antibiotic was started; blood cultures are pending. 06/29/25 The patient is resting in bed and continues to exhibit generalized edema. Intake and output records indicate that her fluid intake matched her output overnight, and charting reflects a 3 kg weight loss. Education provided on reducing intake. Continue lasix 40 mg daily. Blood cultures 2 remain pending, while urine culture was negative, leading to discontinuation of antibiotic. Her white blood cell count has improved to 12.9. IV fluids while potassium was running were initiated last night but discontinued this morning due to fluid overload; potassium was 3.2, replaced, and will be rechecked today. Liver enzymes (AST and ALT) have improved, and creatinine has returned to baseline. Blood pressure has stabilized following initiation of lisinopril 20 mg this morning and administration of Lasix 40 mg IV. She experienced elevated blood pressure overnight requiring several PRN medications, which provided only temporary relief. Breathing treatments were added today due to wheezing noted throughout her lung yarbrough. CXR ordered. The patient also has neck swelling with lymph adenopathy, and TSH has been ordered for further evaluation, with consideration for a CT scan of the neck. An echocardiogram is planned today to further assess her congestive heart failure. Detailed education was provided regarding smoking cessation, diet, and exercise. She is agreeable to smoking cessation, and [id number] information will be provided. She is also agreeable to lifestyle changes and has consented to an outpatient sleep study, which has been ordered. At present, she denies any further concerns. - Review of Systems Constitutional: No Fever, No Chills Eyes: No Symptoms Ears, Nose, & Throat: No Symptoms, Other (neck swelling) Respiratory: Short Of Breath, Wheezing, No Cough Cardiac: Edema (abd/ legs/ neck), No Chest Pain, No Syncope Abdominal/Gastrointestinal: No Abdominal Pain, No Nausea, No Vomiting, No Diarrhea Genitourinary Symptoms: No Dysuria Musculoskeletal: No Back Pain, No Neck Pain Skin: Skin Lesions (BL arms- skin lesions- pt states it's from bug bites this summer and difficult to heal.), No Rash Neurological: No Dizziness, No Focal Weakness, No Sensory Changes Psychological: No Symptoms, Anxiety Endocrine: No Symptoms, Polydipsia Hematologic/Lymphatic: No Symptoms Immunological/Allergic: No Symptoms Objective Exam General Appearance: no apparent distress, alert, obese Neurologic Exam: alert, oriented x 3, cooperative, normal mood/affect, nml cerebellar function, sensation nml, No motor deficits Skin Exam: normal color, warm, dry, rash (BL arms- red flat irregular lesions- pt states is chronic and appear to be healing) Eye Exam: PERRL, EOMI, eyes nml inspection Ears, Nose, Throat Exam: normal ENT inspection, pharynx normal, moist mucous membranes, other (neck edema) Neck Exam: normal inspection, non-tender, supple, full range of motion Respiratory Exam: wheezing, No respiratory distress Cardiovascular Exam: regular rate/rhythm, normal heart sounds, edema (Abd, legs, Neck) Gastrointestinal/Abdomen Exam: soft, No tenderness, No mass Extremity Exam: normal inspection, normal range of motion Back Exam: normal inspection, normal range of motion, No CVA tenderness, No vertebral tenderness Pelvic Exam: deferred Rectal Exam: deferred Objective Data Vital Signs: Vital Signs - 24 hr Temp Pulse Resp BP BP Pulse Ox 06/29/25 10:30 81 16 108/55 94 L 06/29/25 10:00 81 18 123/57 96 06/29/25 09:45 90 18 121/58 96 06/29/25 07:06 97.5 F 99 H 20 197/110 96 06/29/25 03:53 96.8 F 95 H 18 176/91 94 L 06/29/25 00:00 96.6 F 99 H 16 181/106 95 06/28/25 22:36 194/114 100 06/28/25 21:05 108 H 190/117 06/28/25 20:00 96.9 F 91 H 25 H 200/119 100 06/28/25 17:06 97 H 18 99 06/28/25 16:34 97.7 F 96 H 18 190/144 98 06/28/25 16:00 110 H 22 190/144 98 06/28/25 15:58 206/134 100 06/28/25 15:52 97 06/28/25 15:40 194/135 100 06/28/25 15:30 97 H 20 184/134 100 06/28/25 15:20 176/143 97 06/28/25 15:10 94 H 166/133 100 06/28/25 15:00 185/138 06/28/25 14:50 177/144 99 06/28/25 14:40 177/140 100 06/28/25 14:31 179/127 99 06/28/25 14:20 158/124 100 06/28/25 14:10 175/124 89 L 06/28/25 14:00 88 20 164/127 100 06/28/25 13:50 87 20 181/137 100 06/28/25 13:41 86 24 193/127 100 06/28/25 13:40 97 H 22 172/126 06/28/25 13:33 98 H 23 196/135 100 06/28/25 13:30 96 H 24 100 06/28/25 13:20 94 H 21 100 06/28/25 13:14 90 179/127 100 06/28/25 12:50 100 06/28/25 12:40 99 06/28/25 12:30 99 06/28/25 12:23 100 06/28/25 12:10 174/140 100 06/28/25 12:01 22 98 06/28/25 12:00 179/124 100 06/28/25 11:50 89 22 181/141 100 Pain Assessment - Last Documented Pain Intensity 0 Pain Scale Used 0-10 Pain Scale Intake and Output: Intake & Output 06/26/25 06/27/25 06/28/25 06/29/25 11:59 11:59 11:59 11:59 Intake Total 4502 Output Total 4000 Balance 502 Weight 110.6 kg 107.6 kg Lab Results: Lab Results-Last 24 Hours 06/28/25 06/28/25 06/28/25 Range/Units 10:51 11:07 11:07 WBC (3.98-10.04) x10^3/uL RBC (3.93-5.22) x10^6/uL Hgb (11.2-15.7) g/dL Hct (34.1-44.9) % MCV (79.4-94.8) fL MCH (25.6-32.2) pg MCHC (32.2-35.5) g/dL RDW (11.7-14.4) % Plt Count (182-369) x10^3/uL MPV (9.4-12.3) fL Gran % (34.0-71.1) % Immature Gran % (Auto) (0.001-0.429) % Nucleat RBC Rel Count (0.00-0.2) % Eos # (Auto) (0.04-0.36) x10^3/uL Immature Gran # (Auto) (0.001-0.031) x10^3u/L Absolute Lymphs (auto) (1.18-3.74) x10^3/uL Absolute Monos (auto) (0.24-0.86) x10^3/uL Absolute Nucleated RBC (0.00-0.012) x10^3u/L Lymphocytes % (19.3-51.7) % Monocytes % (4.7-12.5) % Eosinophils % (0.7-5.8) % Basophils % (0.1-1.2) % Absolute Granulocytes (1.56-6.13) x10^3/uL Basophils # (0.01-0.08) x10^3/uL PT (9.4-12.5) SECONDS INR (0.8-3.0) APTT (25.1-36.5) SECONDS D-Dimer (0.0-0.50) mg/L Sodium 135 (135-145) mmol/L Potassium 3.8 (3.5-5.1) mmol/L Chloride 103 (98-107) mmol/L Carbon Dioxide 22 (22-30) mmol/L Anion Gap 14.4 (5-15) MEQ/L BUN 19 H (7-17) mg/dL Creatinine 1.17 H (0.52-1.04) mg/dL Estimated GFR 61.6 ML/MIN Glucose 129 H (74-106) mg/dL Hemoglobin A1c (4.5-6.0) % Calcium 9.1 (8.4-10.2) mg/dL Magnesium 2.1 (1.6-2.3) mg/dL Total Bilirubin 0.70 (0.2-1.3) mg/dL AST 73 H (14-36) U/L ALT 139 H (0-35) U/L Alkaline Phosphatase 144 H (38-126) U/L Troponin I (0.000-0.033) ng/mL NT-Pro-B Natriuret Pep 63686 (<300) pg/mL Serum Total Protein 7.1 (6.3-8.2) g/dL Albumin 3.8 (3.5-5.0) g/dL Serum HCG, Qual (NEGATIVE) Urine Color Dark Yellow A (Yellow) Urine Appearance Cloudy A (Clear) Urine pH 5.5 (4.6-8.0) Ur Specific [place] 1.025 (1.005-1.030) Urine Protein 300 A (Negative) Urine Glucose (UA) Negative (Negative) mg/dL Urine Ketones Negative (Negative) Urine Blood Negative (Negative) Urine Nitrite Negative (Negative) Urine Bilirubin Small A (Negative) Urine Urobilinogen 1.0 A (0.2) mg/dL Ur Leukocyte Esterase Negative (Negative) U Hyaline Cast (Auto) 11-20 (0-2) /LPF Urine Microscopic RBC 0-2 (0-5) /HPF Urine Microscopic WBC 21-50 A (0-5) /HPF Ur Epithelial Cells Moderate A (None Seen) /HPF Urine Bacteria Moderate A (None Seen) /HPF Urine Culture Reflexed YES (NO) Urine Opiates Level (NEGATIVE) Ur Methadone (NEGATIVE) Urine Barbiturates (NEGATIVE) Ur Phencyclidine (PCP) (NEGATIVE) Urine Amphetamine (NEGATIVE) U Benzodiazepine Level (NEGATIVE) Urine Cocaine (NEGATIVE) Urine Marijuana (THC) (NEGATIVE) Influenza Type A Ag (NEGATIVE) Influenza Type B Ag (NEGATIVE) RSV (PCR) (NEGATIVE) SARS-CoV-2 (PCR) (NEGATIVE) Slides for Path Review YES 06/28/25 06/28/25 06/28/25 Range/Units 11:07 11:07 11:18 WBC (3.98-10.04) x10^3/uL RBC (3.93-5.22) x10^6/uL Hgb (11.2-15.7) g/dL Hct (34.1-44.9) % MCV (79.4-94.8) fL MCH (25.6-32.2) pg MCHC (32.2-35.5) g/dL RDW (11.7-14.4) % Plt Count (182-369) x10^3/uL MPV (9.4-12.3) fL Gran % (34.0-71.1) % Immature Gran % (Auto) (0.001-0.429) % Nucleat RBC Rel Count (0.00-0.2) % Eos # (Auto) (0.04-0.36) x10^3/uL Immature Gran # (Auto) (0.001-0.031) x10^3u/L Absolute Lymphs (auto) (1.18-3.74) x10^3/uL Absolute Monos (auto) (0.24-0.86) x10^3/uL Absolute Nucleated RBC (0.00-0.012) x10^3u/L Lymphocytes % (19.3-51.7) % Monocytes % (4.7-12.5) % Eosinophils % (0.7-5.8) % Basophils % (0.1-1.2) % Absolute Granulocytes (1.56-6.13) x10^3/uL Basophils # (0.01-0.08) x10^3/uL PT 13.0 H (9.4-12.5) SECONDS INR 1.17 (0.8-3.0) APTT 22.2 L (25.1-36.5) SECONDS D-Dimer 1.27 H* (0.0-0.50) mg/L Sodium (135-145) mmol/L Potassium (3.5-5.1) mmol/L Chloride (98-107) mmol/L Carbon Dioxide (22-30) mmol/L Anion Gap (5-15) MEQ/L BUN (7-17) mg/dL Creatinine (0.52-1.04) mg/dL Estimated GFR ML/MIN Glucose (74-106) mg/dL Hemoglobin A1c (4.5-6.0) % Calcium (8.4-10.2) mg/dL Magnesium (1.6-2.3) mg/dL Total Bilirubin (0.2-1.3) mg/dL AST (14-36) U/L ALT (0-35) U/L Alkaline Phosphatase (38-126) U/L Troponin I 0.032 (0.000-0.033) ng/mL NT-Pro-B Natriuret Pep (<300) pg/mL Serum Total Protein (6.3-8.2) g/dL Albumin (3.5-5.0) g/dL Serum HCG, Qual (NEGATIVE) Urine Color (Yellow) Urine Appearance (Clear) Urine pH (4.6-8.0) Ur Specific [place] (1.005-1.030) Urine Protein (Negative) Urine Glucose (UA) (Negative) mg/dL Urine Ketones (Negative) Urine Blood (Negative) Urine Nitrite (Negative) Urine Bilirubin (Negative) Urine Urobilinogen (0.2) mg/dL Ur Leukocyte Esterase (Negative) U Hyaline Cast (Auto) (0-2) /LPF Urine Microscopic RBC (0-5) /HPF Urine Microscopic WBC (0-5) /HPF Ur Epithelial Cells (None Seen) /HPF Urine Bacteria (None Seen) /HPF Urine Culture Reflexed (NO) Urine Opiates Level (NEGATIVE) Ur Methadone (NEGATIVE) Urine Barbiturates (NEGATIVE) Ur Phencyclidine (PCP) (NEGATIVE) Urine Amphetamine (NEGATIVE) U Benzodiazepine Level (NEGATIVE) Urine Cocaine (NEGATIVE) Urine Marijuana (THC) (NEGATIVE) Influenza Type A Ag NEGATIVE (NEGATIVE) Influenza Type B Ag NEGATIVE (NEGATIVE) RSV (PCR) NEGATIVE (NEGATIVE) SARS-CoV-2 (PCR) NEGATIVE (NEGATIVE) Slides for Path Review 06/28/25 06/28/25 06/28/25 Range/Units 13:55 18:44 Unknown WBC (3.98-10.04) x10^3/uL RBC (3.93-5.22) x10^6/uL Hgb (11.2-15.7) g/dL Hct (34.1-44.9) % MCV (79.4-94.8) fL MCH (25.6-32.2) pg MCHC (32.2-35.5) g/dL RDW (11.7-14.4) % Plt Count (182-369) x10^3/uL MPV (9.4-12.3) fL Gran % (34.0-71.1) % Immature Gran % (Auto) (0.001-0.429) % Nucleat RBC Rel Count (0.00-0.2) % Eos # (Auto) (0.04-0.36) x10^3/uL Immature Gran # (Auto) (0.001-0.031) x10^3u/L Absolute Lymphs (auto) (1.18-3.74) x10^3/uL Absolute Monos (auto) (0.24-0.86) x10^3/uL Absolute Nucleated RBC (0.00-0.012) x10^3u/L Lymphocytes % (19.3-51.7) % Monocytes % (4.7-12.5) % Eosinophils % (0.7-5.8) % Basophils % (0.1-1.2) % Absolute Granulocytes (1.56-6.13) x10^3/uL Basophils # (0.01-0.08) x10^3/uL PT (9.4-12.5) SECONDS INR (0.8-3.0) APTT (25.1-36.5) SECONDS D-Dimer (0.0-0.50) mg/L Sodium (135-145) mmol/L Potassium (3.5-5.1) mmol/L Chloride (98-107) mmol/L Carbon Dioxide (22-30) mmol/L Anion Gap (5-15) MEQ/L BUN (7-17) mg/dL Creatinine (0.52-1.04) mg/dL Estimated GFR ML/MIN Glucose (74-106) mg/dL Hemoglobin A1c (4.5-6.0) % Calcium (8.4-10.2) mg/dL Magnesium (1.6-2.3) mg/dL Total Bilirubin (0.2-1.3) mg/dL AST (14-36) U/L ALT (0-35) U/L Alkaline Phosphatase (38-126) U/L Troponin I 0.025 0.020 (0.000-0.033) ng/mL NT-Pro-B Natriuret Pep (<300) pg/mL Serum Total Protein (6.3-8.2) g/dL Albumin (3.5-5.0) g/dL Serum HCG, Qual NEGATIVE (NEGATIVE) Urine Color (Yellow) Urine Appearance (Clear) Urine pH (4.6-8.0) Ur Specific [place] (1.005-1.030) Urine Protein (Negative) Urine Glucose (UA) (Negative) mg/dL Urine Ketones (Negative) Urine Blood (Negative) Urine Nitrite (Negative) Urine Bilirubin (Negative) Urine Urobilinogen (0.2) mg/dL Ur Leukocyte Esterase (Negative) U Hyaline Cast (Auto) (0-2) /LPF Urine Microscopic RBC (0-5) /HPF Urine Microscopic WBC (0-5) /HPF Ur Epithelial Cells (None Seen) /HPF Urine Bacteria (None Seen) /HPF Urine Culture Reflexed (NO) Urine Opiates Level (NEGATIVE) Ur Methadone (NEGATIVE) Urine Barbiturates (NEGATIVE) Ur Phencyclidine (PCP) (NEGATIVE) Urine Amphetamine (NEGATIVE) U Benzodiazepine Level (NEGATIVE) Urine Cocaine (NEGATIVE) Urine Marijuana (THC) (NEGATIVE) Influenza Type A Ag (NEGATIVE) Influenza Type B Ag (NEGATIVE) RSV (PCR) (NEGATIVE) SARS-CoV-2 (PCR) (NEGATIVE) Slides for Path Review 06/28/25 06/28/25 06/29/25 Range/Units Unknown Unknown 04:32 WBC 12.9 H (3.98-10.04) x10^3/uL RBC 5.54 H (3.93-5.22) x10^6/uL Hgb 11.7 (11.2-15.7) g/dL Hct 41.9 (34.1-44.9) % MCV 75.6 L (79.4-94.8) fL MCH 21.1 L (25.6-32.2) pg MCHC 27.9 L (32.2-35.5) g/dL RDW 17.2 H (11.7-14.4) % Plt Count 377 H (182-369) x10^3/uL MPV 9.1 L (9.4-12.3) fL Gran % 64.2 (34.0-71.1) % Immature Gran % (Auto) 0.4 (0.001-0.429) % Nucleat RBC Rel Count 0.3 H (0.00-0.2) % Eos # (Auto) 0.24 (0.04-0.36) x10^3/uL Immature Gran # (Auto) 0.05 H (0.001-0.031) x10^3u/L Absolute Lymphs (auto) 3.38 (1.18-3.74) x10^3/uL Absolute Monos (auto) 0.87 H (0.24-0.86) x10^3/uL Absolute Nucleated RBC 0.04 H (0.00-0.012) x10^3u/L Lymphocytes % 26.2 (19.3-51.7) % Monocytes % 6.7 (4.7-12.5) % Eosinophils % 1.9 (0.7-5.8) % Basophils % 0.6 (0.1-1.2) % Absolute Granulocytes 8.29 H (1.56-6.13) x10^3/uL Basophils # 0.08 (0.01-0.08) x10^3/uL PT (9.4-12.5) SECONDS INR (0.8-3.0) APTT (25.1-36.5) SECONDS D-Dimer (0.0-0.50) mg/L Sodium (135-145) mmol/L Potassium (3.5-5.1) mmol/L Chloride (98-107) mmol/L Carbon Dioxide (22-30) mmol/L Anion Gap (5-15) MEQ/L BUN (7-17) mg/dL Creatinine (0.52-1.04) mg/dL Estimated GFR ML/MIN Glucose (74-106) mg/dL Hemoglobin A1c 6.33 H (4.5-6.0) % Calcium (8.4-10.2) mg/dL Magnesium (1.6-2.3) mg/dL Total Bilirubin (0.2-1.3) mg/dL AST (14-36) U/L ALT (0-35) U/L Alkaline Phosphatase (38-126) U/L Troponin I (0.000-0.033) ng/mL NT-Pro-B Natriuret Pep (<300) pg/mL Serum Total Protein (6.3-8.2) g/dL Albumin (3.5-5.0) g/dL Serum HCG, Qual (NEGATIVE) Urine Color (Yellow) Urine Appearance (Clear) Urine pH (4.6-8.0) Ur Specific [place] (1.005-1.030) Urine Protein (Negative) Urine Glucose (UA) (Negative) mg/dL Urine Ketones (Negative) Urine Blood (Negative) Urine Nitrite (Negative) Urine Bilirubin (Negative) Urine Urobilinogen (0.2) mg/dL Ur Leukocyte Esterase (Negative) U Hyaline Cast (Auto) (0-2) /LPF Urine Microscopic RBC (0-5) /HPF Urine Microscopic WBC (0-5) /HPF Ur Epithelial Cells (None Seen) /HPF Urine Bacteria (None Seen) /HPF Urine Culture Reflexed (NO) Urine Opiates Level NEGATIVE (NEGATIVE) Ur Methadone NEGATIVE (NEGATIVE) Urine Barbiturates NEGATIVE (NEGATIVE) Ur Phencyclidine (PCP) NEGATIVE (NEGATIVE) Urine Amphetamine NEGATIVE (NEGATIVE) U Benzodiazepine Level NEGATIVE (NEGATIVE) Urine Cocaine NEGATIVE (NEGATIVE) Urine Marijuana (THC) NEGATIVE (NEGATIVE) Influenza Type A Ag (NEGATIVE) Influenza Type B Ag (NEGATIVE) RSV (PCR) (NEGATIVE) SARS-CoV-2 (PCR) (NEGATIVE) Slides for Path Review YES 06/29/25 Range/Units 04:32 WBC (3.98-10.04) x10^3/uL RBC (3.93-5.22) x10^6/uL Hgb (11.2-15.7) g/dL Hct (34.1-44.9) % MCV (79.4-94.8) fL MCH (25.6-32.2) pg MCHC (32.2-35.5) g/dL RDW (11.7-14.4) % Plt Count (182-369) x10^3/uL MPV (9.4-12.3) fL Gran % (34.0-71.1) % Immature Gran % (Auto) (0.001-0.429) % Nucleat RBC Rel Count (0.00-0.2) % Eos # (Auto) (0.04-0.36) x10^3/uL Immature Gran # (Auto) (0.001-0.031) x10^3u/L Absolute Lymphs (auto) (1.18-3.74) x10^3/uL Absolute Monos (auto) (0.24-0.86) x10^3/uL Absolute Nucleated RBC (0.00-0.012) x10^3u/L Lymphocytes % (19.3-51.7) % Monocytes % (4.7-12.5) % Eosinophils % (0.7-5.8) % Basophils % (0.1-1.2) % Absolute Granulocytes (1.56-6.13) x10^3/uL Basophils # (0.01-0.08) x10^3/uL PT (9.4-12.5) SECONDS INR (0.8-3.0) APTT (25.1-36.5) SECONDS D-Dimer (0.0-0.50) mg/L Sodium 135 (135-145) mmol/L Potassium 3.2 L (3.5-5.1) mmol/L Chloride 100 (98-107) mmol/L Carbon Dioxide 25 (22-30) mmol/L Anion Gap 13.6 (5-15) MEQ/L BUN 19 H (7-17) mg/dL Creatinine 0.93 (0.52-1.04) mg/dL Estimated GFR 81.2 ML/MIN Glucose 82 (74-106) mg/dL Hemoglobin A1c (4.5-6.0) % Calcium 8.8 (8.4-10.2) mg/dL Magnesium (1.6-2.3) mg/dL Total Bilirubin 1.10 (0.2-1.3) mg/dL AST 56 H (14-36) U/L ALT 114 H (0-35) U/L Alkaline Phosphatase 119 (38-126) U/L Troponin I (0.000-0.033) ng/mL NT-Pro-B Natriuret Pep 8680 (<300) pg/mL Serum Total Protein 6.6 (6.3-8.2) g/dL Albumin 3.6 (3.5-5.0) g/dL Serum HCG, Qual (NEGATIVE) Urine Color (Yellow) Urine Appearance (Clear) Urine pH (4.6-8.0) Ur Specific [place] (1.005-1.030) Urine Protein (Negative) Urine Glucose (UA) (Negative) mg/dL Urine Ketones (Negative) Urine Blood (Negative) Urine Nitrite (Negative) Urine Bilirubin (Negative) Urine Urobilinogen (0.2) mg/dL Ur Leukocyte Esterase (Negative) U Hyaline Cast (Auto) (0-2) /LPF Urine Microscopic RBC (0-5) /HPF Urine Microscopic WBC (0-5) /HPF Ur Epithelial Cells (None Seen) /HPF Urine Bacteria (None Seen) /HPF Urine Culture Reflexed (NO) Urine Opiates Level (NEGATIVE) Ur Methadone (NEGATIVE) Urine Barbiturates (NEGATIVE) Ur Phencyclidine (PCP) (NEGATIVE) Urine Amphetamine (NEGATIVE) U Benzodiazepine Level (NEGATIVE) Urine Cocaine (NEGATIVE) Urine Marijuana (THC) (NEGATIVE) Influenza Type A Ag (NEGATIVE) Influenza Type B Ag (NEGATIVE) RSV (PCR) (NEGATIVE) SARS-CoV-2 (PCR) (NEGATIVE) Slides for Path Review Radiology Exams: Radiology Procedures Category Date Time Status CHEST 1 VIEW (PORTABLE) Routine Exams 06/29/25 11:28 Taken CHEST WITH CONTRAST [CT] Stat Exams 06/28/25 11:54 Completed ECHO W/2D AND DOPPLER [US] Routine Exams 06/29/25 16:25 Taken VENOUS BILATERAL EXTREMITY [US] Stat Exams 06/28/25 11:55 Completed Medications: Medications Generic Name Dose Route Start Last Admin Trade Name Freq PRN Reason Stop Dose Admin Acetaminophen 650 mg 06/28/25 17:13 06/28/25 22:35 Acetaminophen 325 Mg Tablet PO 07/28/25 17:12 650 mg Q6H PRN PRN Administration PAIN, FEVER, HEADACHE Albuterol/Ipratropium 3 ml 06/29/25 11:27 Ipratropium/Albuterol Sulfate 3 Ml Ampul.Neb IH 07/29/25 11:26 Q4HPRN PRN SHORTNESS OF BREATH/WHEEZING Furosemide 40 mg 06/29/25 10:00 06/29/25 10:32 Furosemide 40 Mg/4 Ml Vial IV 07/29/25 09:59 40 mg DAILY ELANA Administration Heparin Sodium (Beef Lung) 5,000 unit 06/28/25 22:00 06/29/25 10:33 Heparin 5000 Units/0.5 Ml 5,000 Unit/0.5 Ml Syr SQ 07/28/25 21:59 5,000 unit BID ELANA Administration Lisinopril 20 mg 06/30/25 10:00 Lisinopril 20 Mg Tablet PO 07/30/25 09:59 DAILY ELANA Nicotine 21 mg 06/28/25 17:15 06/29/25 10:32 Nicotine 21 Mg/Patch Patch TOP 07/28/25 17:14 21 mg Q24H10 ELANA Administration Ondansetron HCl 4 mg 06/28/25 16:24 Ondansetron Hcl 4 Mg/2 Ml Vial IV 07/28/25 16:23 Q6H PRN PRN NAUSEA/VOMITING Pantoprazole Sodium 20 mg 06/29/25 10:00 06/29/25 10:33 Pantoprazole 20 Mg Tab PO 07/29/25 09:59 20 mg DAILY ELANA Administration Quetiapine Fumarate 25 mg 06/28/25 22:00 06/28/25 22:36 Quetiapine Fumarate 25 Mg Tablet PO 07/28/25 21:59 25 mg HS ELANA Administration Discontinued Medications Generic Name Dose Route Start Last Admin Trade Name Freq PRN Reason Stop Dose Admin Acetaminophen 650 mg 06/28/25 16:24 Acetaminophen 325 Mg Tablet PO 07/28/25 16:23 Q4H PRN PRN PAIN, FEVER, HEADACHE Furosemide 40 mg 06/28/25 13:41 06/28/25 13:58 Furosemide 40 Mg/4 Ml Vial IV 06/28/25 13:42 40 mg STAT ONE Administration Furosemide Confirm 06/28/25 13:57 Furosemide 40 Mg/4 Ml Vial Administered 06/28/25 13:58 Dose 40 mg .ROUTE .STK-MED ONE Hydralazine HCl 10 mg 06/28/25 17:18 06/28/25 17:39 Hydralazine Hcl 20 Mg/Ml Vial IV 06/28/25 17:19 10 mg STAT ONE Administration Hydralazine HCl 10 mg 06/28/25 19:23 06/29/25 06:53 Hydralazine Hcl 20 Mg/Ml Vial IV 07/28/25 19:22 10 mg Q4H PRN PRN Administration hypertension Sodium Chloride 250 mls @ 250 mls/hr 06/28/25 12:00 06/28/25 13:37 Sodium Chloride 0.9% 250 Ml IV 06/28/25 12:59 Infused .Q1H ELANA Infusion Potassium Chloride 20 meq in 100 mls @ 50 mls/hr 06/29/25 06:44 06/29/25 06:56 Potassium Chloride 20 Meq In Water 100ml IV 06/29/25 08:43 50 mls/hr STAT ONE Administration Sodium Chloride 500 mls @ 50 mls/hr 06/29/25 06:45 06/29/25 06:56 Sodium Chloride 0.9% 500 Ml IV 06/30/25 06:44 50 mls/hr .Q10H ELANA Administration Labetalol HCl 10 mg 06/28/25 11:41 06/28/25 11:45 Labetalol Hcl 20 Mg/4 Ml Disp.Syringe IV 06/28/25 11:42 10 mg STAT ONE Administration Labetalol HCl Confirm 06/28/25 11:44 Labetalol Hcl 20 Mg/4 Ml Disp.Syringe Administered 06/28/25 11:45 Dose 20 mg IV .STK-MED ONE Labetalol HCl 10 mg 06/28/25 13:35 06/28/25 13:36 Labetalol Hcl 20 Mg/4 Ml Disp.Syringe IV 06/28/25 13:36 10 mg STAT ONE Administration Labetalol HCl Confirm 06/28/25 21:23 Labetalol Hcl 20 Mg/4 Ml Disp.Syringe Administered 06/28/25 21:24 Dose 20 mg IV .STK-MED ONE Labetalol HCl 10 mg 06/28/25 22:21 06/28/25 22:36 Labetalol Hcl 20 Mg/4 Ml Disp.Syringe IV 07/28/25 22:20 10 mg Q6H PRN PRN Administration HYPERTENSION Lisinopril 10 mg 06/28/25 16:23 06/28/25 18:04 Lisinopril 10 Mg Tablet PO 06/28/25 16:24 Not Given STAT STA Lisinopril 10 mg 06/29/25 10:00 Lisinopril 10 Mg Tablet PO 07/29/25 09:59 DAILY ELANA Lisinopril 10 mg 06/28/25 22:00 06/28/25 22:36 Lisinopril 10 Mg Tablet PO 06/28/25 22:01 10 mg ONCE ONE Administration Lisinopril 20 mg 06/29/25 07:54 06/29/25 08:55 Lisinopril 20 Mg Tablet PO 06/29/25 07:55 20 mg STAT ONE Administration Nitrofurantoin Macrocrystals 100 mg 06/28/25 17:00 06/28/25 17:38 Nitrofurantoin Macro 100 Mg Capsule PO 07/28/25 16:59 100 mg BIDWM EALNA Administration Multi-Disciplinary Progress Notes: Multi-Disciplinary Progress Notes 06/29/25 10:27 Respiratory Note by Krysten Ellison HOME SLEEP STUDY HAS BEEN SCHEDULED FOR ThursdayJune AT 5PM. Initialized on 06/29/25 10:27 - END OF NOTE Assessment/Plan (1) CHF (congestive heart failure) Current Visit: Yes Status: Acute Code(s): I50.9 - HEART FAILURE, UNSPECIFIED (2) UTI (urinary tract infection) Current Visit: Yes Status: Acute Code(s): N39.0 - URINARY TRACT INFECTION, SITE NOT SPECIFIED (3) Leukocytosis Current Visit: Yes Status: Acute Code(s): D72.829 - ELEVATED WHITE BLOOD CELL COUNT, UNSPECIFIED (4) Transaminitis Current Visit: Yes Status: Acute Code(s): R74.01 - ELEVATION OF LEVELS OF LIVER TRANSAMINASE LEVELS (5) Hypertension Current Visit: Yes Status: Acute Code(s): I10 - ESSENTIAL (PRIMARY) HYPERTENSION (6) JULIANN (acute kidney injury) Current Visit: Yes Status: Acute Code(s): N17.9 - ACUTE KIDNEY FAILURE, UNSPECIFIED (7) D-dimer, elevated Current Visit: Yes Status: Acute Code(s): R79.89 - OTHER SPECIFIED ABNORMAL FINDINGS OF BLOOD CHEMISTRY (8) Anasarca Current Visit: Yes Status: Acute Code(s): R60.1 - GENERALIZED EDEMA (9) Cardiomegaly Current Visit: Yes Status: Acute Code(s): I51.7 - CARDIOMEGALY (10) Obstructive sleep apnea Current Visit: Yes Status: Acute Code(s): G47.33 - OBSTRUCTIVE SLEEP APNEA (ADULT) (PEDIATRIC) (11) Hyperglycemia Current Visit: Yes Status: Acute Code(s): R73.9 - HYPERGLYCEMIA, UNSPECIFIED (12) Fatty liver Current Visit: Yes Status: Acute Code(s): K76.0 - FATTY (CHANGE OF) LIVER, NOT ELSEWHERE CLASSIFIED (13) Tachycardia Current Visit: Yes Status: Acute Code(s): R00.0 - TACHYCARDIA, UNSPECIFIED (14) Smoker Current Visit: Yes Status: Chronic Code(s): F17.200 - NICOTINE DEPENDENCE, UNSPECIFIED, UNCOMPLICATED (15) Insomnia Current Visit: Yes Status: Chronic Code(s): G47.00 - INSOMNIA, UNSPECIFIED (16) Chronic headaches Current Visit: Yes Status: Acute Code(s): R51.9 - HEADACHE, UNSPECIFIED; G89.29 - OTHER CHRONIC PAIN (17) Morbid obesity with BMI of 50.0-59.9, adult Current Visit: Yes Status: Chronic Assessment & Plan: (1) CHF (congestive heart failure) Current Visit: Yes Status: Acute Assessment & Plan: - BNP 13,700 - Stop IBP - EKG - ECHO - TELE - + Smoker - UDS - Trops X2 negative- trend - Cardiology consult - Lasix IV daily - Strict I&O's - Up with assist - CTA reviewed - +3 BLLE edema- VD negative for DVT 06/29 - CXR pending - + Wheezing today- duonebs ordered PRN - 3 kg weight loss last night - IVF stopped this AM that were started last night for K-rider - Continue lasix 40 daily - Pt's oral intake as much as input last night- education provided- consider fluid restriction - TEDS - Echo pending - CBC, CMP reviewed Code(s): I50.9 - HEART FAILURE, UNSPECIFIED (2) UTI (urinary tract infection) Current Visit: Yes Status: Acute Assessment & Plan: - Macrobid BID - UA reviewed - UC pending - CBC, CMP reviewed - WBC 13.3 - BC x2 pending 06/29 - UC negative- antibiotic stopped - WBC 12.9 improved Code(s): N39.0 - URINARY TRACT INFECTION, SITE NOT SPECIFIED (3) Leukocytosis Current Visit: Yes Status: Acute Assessment & Plan: - + UTI - WBC 13.3 - Flu/COVID/RSV negative - CBC, CMP reviewed - Radiology results reviewed 06/29 - WBC 12.9 improved - CXR pending Code(s): D72.829 - ELEVATED WHITE BLOOD CELL COUNT, UNSPECIFIED (4) Transaminitis Current Visit: Yes Status: Acute Assessment & Plan: - AST 73, ALT 139 - 2:2 CHF 06/29 - AST 56, ALT 114- improved Code(s): R74.01 - ELEVATION OF LEVELS OF LIVER TRANSAMINASE LEVELS (5) Hypertension Current Visit: Yes Status: Acute Assessment & Plan: - Labetalol gave IV x2 in ER - Lisinopril started - Trend BP 06/29 - Labetalol and hydralizine gave IV last night for uncontrolled HTN - Lisinopril 20mg PO started this AM - IV Lasix gave this AM - BP stable after meds gave this AM Code(s): I10 - ESSENTIAL (PRIMARY) HYPERTENSION (6) JULIANN (acute kidney injury) Current Visit: Yes Status: Acute Assessment & Plan: - Creat 1.17- trend - Receiving lasix - Received 250ml fluid bolus in ER 06/29 - Resolved Code(s): N17.9 - ACUTE KIDNEY FAILURE, UNSPECIFIED (7) D-dimer, elevated Current Visit: Yes Status: Acute Assessment & Plan: - D-Dimer 1.27 - RA 99% - CTA : Impression: 1. Negative pulmonary embolus. No acute cardiopulmonary abnormalities. 2. Incidental cardiomegaly, right middle lobe atelectasis/scarring, fatty liver, and abdominal anasarca. Code(s): R79.89 - OTHER SPECIFIED ABNORMAL FINDINGS OF BLOOD CHEMISTRY (8) Anasarca Current Visit: Yes Status: Acute Assessment & Plan: - As seen on CT - Lasix IV - Strict I&O's - Tele - 2:2 CHF Code(s): R60.1 - GENERALIZED EDEMA (9) Cardiomegaly Current Visit: Yes Status: Acute Assessment & Plan: - As seen on CTA - Echo - HX of lound snoring, chronic morbid obesity, and smoker Code(s): I51.7 - CARDIOMEGALY (10) Obstructive sleep apnea Current Visit: Yes Status: Acute Assessment & Plan: - Will order OP sleep study - + Loud snoring at night per Code(s): G47.33 - OBSTRUCTIVE SLEEP APNEA (ADULT) (PEDIATRIC) (11) Hyperglycemia Current Visit: Yes Status: Acute Assessment & Plan: - Glucose on admission 129 - A1C 6.33 Code(s): R73.9 - HYPERGLYCEMIA, UNSPECIFIED (12) Fatty liver Current Visit: Yes Status: Acute Assessment & Plan: - As seen on CTA - F/U OP Code(s): K76.0 - FATTY (CHANGE OF) LIVER, NOT ELSEWHERE CLASSIFIED (13) Tachycardia Current Visit: Yes Status: Acute Assessment & Plan: - Tele - 2:2 CHF- see plan above - Trend - EKG - Echo Code(s): R00.0 - TACHYCARDIA, UNSPECIFIED (14) Smoker Current Visit: Yes Status: Chronic Assessment & Plan: - Advised cessation - Education provided - Nicotine patch Code(s): F17.200 - NICOTINE DEPENDENCE, UNSPECIFIED, UNCOMPLICATED (15) Insomnia Current Visit: Yes Status: Chronic Assessment & Plan: - Start seroquel At HS - Has been taking 2 OTC sleep aides at night every night that includes Benadryl. Code(s): G47.00 - INSOMNIA, UNSPECIFIED (16) Chronic headaches Current Visit: Yes Status: Acute Assessment & Plan: - Likely 2:2 sleep apnea and HTN- see plans above - Stop IBP - Tylenol PRN Code(s): R51.9 - HEADACHE, UNSPECIFIED; G89.29 - OTHER CHRONIC PAIN (17) Morbid obesity with BMI of 50.0-59.9, adult Current Visit: Yes Status: Chronic Assessment & Plan: - Advised diet and exercise control Code(s): E66.01 - MORBID (SEVERE) OBESITY DUE TO EXCESS CALORIES; Z68.43 - BODY MASS INDEX [BMI] 50.0-59.9, ADULT (18) Prediabetes Current Visit: Yes Status: Acute Assessment & Plan: - A1C 6.33 with morbid obesity, younger than 60 yrs old, no hx of gestational diabetes - Start metformin 500mg BID - Education on lifestyle changes with diet and exercise provided. Code(s): R73.03 - PREDIABETES (19) Hypokalemia Current Visit: Yes Status: Acute Assessment & Plan: - K+ 3.2- replaced - IVF order placed with IV K-rider last night- this was stopped this AM as pt has CHF. - Repeat K+ 3.3- replaced with oral K-lite Code(s): E87.6 - HYPOKALEMIA (20) Neck swelling Current Visit: Yes Status: Acute Assessment & Plan: - Benadryl x1 now - TSH -+ submandibular lymphadenopathy BL - Consdier CT neck - Denies resp distress or difficulty breathing VTE: Lovenox PPI: Protonix Next of KIN: Code status: Full D/C Plan: 2-3 days Plan of care time > 50 minutes Code(s): R22.1 - LOCALIZED SWELLING, MASS AND LUMP, NECK
[2025-06-29] MEDS: BENADRYL 25 MG CAPSULE PO ONE (12:03)
--- NOTE | 2025-06-29 12:18 | XRAY ---
Indication: Wheezing. Short of breath. CHF. Comparison: None Portable chest inflated and clear. Heart is enlarged. Bony thorax intact. No acute findings.
[2025-06-29] MEDS: K-LYTE PO SCH (13:58)
[2025-06-29] MEDS: AQUAPHOR OINTMENT 50 GM TP SCH (13:59)
[2025-06-29] MEDS: ZINC OXIDE OINTMENT 30 GM TP SCH (13:59)
--- NOTE | 2025-06-29 17:48 | PCM.CONS ---
History of Present Illness - Date of Consult Date of Encounter: 06/29/25 Consulting Bobbin Hauler: LISA REID MD Requesting Provider: Attending Provider: BABAR YORK MD Primary Care Provider: PCP: NO FAMILY DOCTOR Consent was: Given for this tele-med encounter - Consult Narrative HPI: Patient is a 39F who denies fevers, chills, nausea, vomiting, diarrhea, syncope, presyncope, dysphagia,odynophagia, orthopnea, paroxysmal nocturnal dyspnea, shortness of breath, chest pain, refluxsymptoms, belly pain, dysuria, hematuria, melena, hematochezia, seizures, paralysis, or other neurological changes. All other systems have been reviewed and are negative. cc:: The requesting physician will be sent a copy of the consult. - Past Medical History Past Medical History: No Neurological History: No Pertinent History ENT History: No Pertinent History Cardiac History: No Pertinent History Respiratory History: Asthma, Sleep Apnea Endocrine Medical History: No Pertinent History Musculoskelatal History: No Pertinent History GI Medical History: No Pertinent History History: No Pertinent History Pyscho-Social History: Anxiety Reproductive Disorders: No Pertinent History Comment: Hx of cysts - Female History Are you now?: No - Past Surgical History Past Surgical History: No Significant Family History: no pertinent family hx - Social History Smoking Status: Current every day smoker How long have you smoked: years Exposure to second hand smoke: Yes Alcohol: None Drug Use: none - Social Determinants of Health Will the patient participate in the screening: Declined to provide Medications & Allergies Home Medications: Home Medication List Ibuprofen 200 mg [Motrin 200 mg] 800 mg PO Q4HPRN PRN 06/28/25 [History Confirmed 06/28/25] Pamabrom [Diurex Max] 50 mg PO Q5H PRN 06/28/25 [History Confirmed 06/28/25] diphenhydrAMINE HCL [Sleep Aid] 100 mg PO HS 06/28/25 [History Confirmed 10/18] Allergies/Adverse Reactions: Allergies Allergy/AdvReac Type Severity Reaction Status Date / Time amoxicillin Allergy Intermediate Hives Verified 06/28/25 16:52 Exam - Vitals Vital Signs: Vital Signs - 24 hr Temp Pulse Resp BP BP Pulse Ox 06/29/25 16:00 97.8 F 114 H 20 184/101 98 06/29/25 12:54 107 H 20 97 06/29/25 12:00 97.9 F 111 H 20 139/97 98 06/29/25 07:06 97.5 F 99 H 20 197/110 96 06/29/25 03:53 96.8 F 95 H 18 176/91 94 L 06/29/25 00:00 96.6 F 99 H 16 181/106 95 06/28/25 22:36 194/114 100 06/28/25 21:05 108 H 190/117 06/28/25 20:00 96.9 F 91 H 25 H 200/119 100 SpO2: 98 Results Vital Signs: Vital Signs - 24 hr Temp Pulse Resp BP BP Pulse Ox 06/29/25 16:00 97.8 F 114 H 20 184/101 98 06/29/25 12:54 107 H 20 97 06/29/25 12:00 97.9 F 111 H 20 139/97 98 06/29/25 07:06 97.5 F 99 H 20 197/110 96 06/29/25 03:53 96.8 F 95 H 18 176/91 94 L 06/29/25 00:00 96.6 F 99 H 16 181/106 95 06/28/25 22:36 194/114 100 06/28/25 21:05 108 H 190/117 06/28/25 20:00 96.9 F 91 H 25 H 200/119 100 Pain Assessment - Last Documented Pain Intensity 0 Pain Scale Used 0-10 Pain Scale Intake and Output: Intake & Output 06/27/25 06/28/25 06/29/25 06/30/25 11:59 11:59 11:59 11:59 Intake Total 4502 720 Output Total 4000 1800 Balance 502 -1080 Weight 110.6 kg 107.6 kg LAB: I have reviewed the Labs in [facility]. Radiology Exams: Radiology Procedures Category Date Time Status CHEST 1 VIEW (PORTABLE) Routine Exams 06/29/25 11:28 Completed CHEST WITH CONTRAST [CT] Stat Exams 06/28/25 11:54 Completed ECHO W/2D AND DOPPLER [US] Routine Exams 06/29/25 16:25 Taken VENOUS BILATERAL EXTREMITY [US] Stat Exams 06/28/25 11:55 Completed TTE 06/29/2025: 1. Normal chamber sizes. 2. Mild concentric left ventricular hypertrophy. 3. Left ventricular systolic function is at the lower limits of normal with an e stimated EF 50-55%. No focal wall motion abnormalities. 4. Unable to determine the grade of diastolic dysfunction with the patient's underlying sinus tachycardia. 5. Mild aortic and mitral sclerosis without stenosis. 6. Doppler: Mild mitral and tricuspid regurgitation, trace aortic regurgitation. 7. Mildly elevated PA systolic pressure with an estimated PA systolic pressure 33 mmHg. 8. Mildly elevated right atrial pressure (8 mmHg). 9. Trivial posterior pericardial effusion. Tracing 1 Attestation: I have reviewed this EKG and interpreted as documented below. EKG Narrative: 06/28/2025: Sinus tachycardia at [address] and T wave abnormality. Multi-Disciplinary Progress Notes: Multi-Disciplinary Progress Notes 06/29/25 10:27 Respiratory Note by Krysten Ellison HOME SLEEP STUDY HAS BEEN SCHEDULED FOR ThursdayJune AT 5PM. Initialized on 06/29/25 10:27 - END OF NOTE Assessment & Plan (1) Heart failure with preserved ejection fraction (HFpEF) Current Visit: Yes Status: Acute Qualifiers: Heart failure chronicity: acute Qualified Code(s): I50.31 - Acute diastolic (congestive) heart failure Assessment & Plan: Developed in the setting of a hypertensive emergency. Evidence of hypertensive heart disease on echo with mild concentric left ventricular hypertrophy. Unable to determine degree of diastolic dysfunction due to her sinus tachycardia. She remains mildly volume overloaded. Will continue IV furosemide and try to better control her hypertension. Code(s): I50.30 - UNSPECIFIED DIASTOLIC (CONGESTIVE) HEART FAILURE (2) Hypertensive emergency Current Visit: Yes Status: Acute Assessment & Plan: Unknown duration of hypertension with lack of medical followup. Given IV labetalol and IV hydralazine last night and oral lisinopril. BP remains moderate to severely elevated. She has remained tachycardic. Will evaluate for a pheochromocytoma with a 24 hour urine for catecholamines and metanephrines. Before adding spironolactone, will screen for primary aldosteronism by sending plasma renin activity and serum aldoserone levels. Start amlodipine 10 mg daily. Short term target BP < 140/90. watermaster target BP <130/80. Code(s): I16.1 - HYPERTENSIVE EMERGENCY (3) Hypertensive heart disease with heart failure Current Visit: Yes Status: Acute Assessment & Plan: Mild concentric LVH with probable diastolic dysfunction. - Encounter Encounter: "The entirety of this encounter was performed via Telemedicine using audio and visual "
[2025-06-29] MEDS: Glucophage XR 500 MG PO SCH (18:07)
[2025-06-29] MEDS: NORVASC 5 MG PO ONE (20:17)
[2025-06-30 05:05] LABS: Hematocrit 37.1 % (34.1-44.9); Hemoglobin 10.7 g/dL (11.2-15.7); Mean Corpuscular Hemoglobin 21.8 pg (25.6-32.2); Mean Corpuscular Hgb Concent. 28.8 g/dL (32.2-35.5); Platelet Count 370 x10^3/uL (182-369); Red Blood Count 4.90 x10^6/uL (3.93-5.22); White Blood Count 11.1 x10^3/uL (3.98-10.04)
[2025-06-30 05:34] LABS: Calcium 8.4 mg/dL (8.4-10.2); Carbon Dioxide 26.0 mmol/L (22-30); Creatinine 1 1.13 mg/dL (0.52-1.04); EST GLOMERULAR FILTRATION RATE 64.3 ML/MIN; Glucose 113.0 mg/dL (74-106); Potassium 3.9 mmol/L (3.5-5.1); SGOT/AST 37.0 U/L (14-36); SGPT/ALT 75.0 U/L (0-35); Total Protein 6.2 g/dL (6.3-8.2)
[2025-06-30] MEDS: DUONEB 0.5-3 MG/3 ml Neb IH PRN (08:35)
--- NOTE | 2025-06-30 08:52 | PCM.NOTE ---
Date and Time: 06/30/25 0838 Subjective Assessment: 06/28/25 is a 39-year-old female with a history of smoking (1-1 1/2 ppd), daily headaches managed with ibuprofen (2-3 tabs per day), morbid obesity, and insomnia who presented to the emergency department with worsening shortness of breath and bilateral lower extremity swelling over the past three weeks, with symptoms acutely worse this morning. At urgent care, her room air oxygen saturation was 8586%, but upon arrival to our facility it was 100%. She denied chest pain, fever, cough, bleeding or clotting disorders, and recent long travel. She reported a single episode of severe back pain within the past three weeks. On arrival, her heart rate was 129 bpm, and she continued to feel short of breath despite normal oxygen saturation. In the ER, she received Lasix 40 mg IV, 250 mL IV normal saline, and two doses of IV labetalol for elevated blood pressure. Blood pressure remains elevated, and lisinopril has been initiated. D- dimer was elevated at 1.27, but chest CTA was negative for pulmonary embolism, instead showing cardiomegaly, fatty liver, and anasarca. She reports snoring at night, suggesting possible undiagnosed sleep apnea. Admission labs revealed glucose 129, with A1c pending, AST 73, ALT 139, and BNP markedly elevated at 13,700. Troponins were negative on two occasions. Urinalysis was positive for urinary tract infection, and antibiotic was started; blood cultures are pending. 06/29/25 The patient is resting in bed and continues to exhibit generalized edema. Intake and output records indicate that her fluid intake matched her output overnight, and charting reflects a 3 kg weight loss. Education provided on reducing intake. Continue lasix 40 mg daily. Blood cultures 2 remain pending, while urine culture was negative, leading to discontinuation of antibiotic. Her white blood cell count has improved to 12.9. IV fluids while potassium was running were initiated last night but discontinued this morning due to fluid overload; potassium was 3.2, replaced, and will be rechecked today. Liver enzymes (AST and ALT) have improved, and creatinine has returned to baseline. Blood pressure has stabilized following initiation of lisinopril 20 mg this morning and administration of Lasix 40 mg IV. She experienced elevated blood pressure overnight requiring several PRN medications, which provided only temporary relief. Breathing treatments were added today due to wheezing noted throughout her lung yarbrough. CXR ordered. The patient also has neck swelling with lymp hadenopathy, and TSH has been ordered for further evaluation, with consideration for a CT scan of the neck. An echocardiogram is planned today to further assess her congestive heart failure. Detailed education was provided regarding smoking cessation, diet, and exercise. She is agreeable to smoking cessation, and - information will be provided. She is also agreeable to lifestyle changes and has consented to an outpatient sleep study, which has been ordered. At present, she denies any further concerns. 06/30/25 Patient resting in the chair. She is upset that she is not able to leave today. She has to have a 24-hour urine test ordered by cardiology for further evaluation of her symptoms. Urine culture and blood culture x 2 are negative. Patient continued to have hypertension overnight despite amlodipine being added by cardiology last night. Lisinopril continued as well as Lasix daily. Edema of BLLE improved. Echo reviewed and shows EF is 50 to 55% with systolic heart failure and a trivial pericardial effusion. White blood cell count is 11.1 and improved. Creatinine is a little bit up today at 1.13, AST has improved at 37 and ALT is improved at 75. Patient had wheezing this morning and asked RT to provide a breathing treatment patient refused breathing treatments yesterday as she did not feel like she needs them. Patient likely will DC tomorrow if blood pressure is improved. - Review of Systems Constitutional: No Fever, No Chills Eyes: No Symptoms Ears, Nose, & Throat: No Symptoms, Other (neck edema) Respiratory: Wheezing, No Cough, No Short Of Breath Cardiac: No Chest Pain, No Edema, No Syncope Abdominal/Gastrointestinal: No Abdominal Pain, No Nausea, No Vomiting, No Diarrhea Genitourinary Symptoms: No Dysuria Musculoskeletal: No Back Pain, No Neck Pain Skin: Skin Lesions (BL arms- improved), No Rash Neurological: No Dizziness, No Focal Weakness, No Sensory Changes Psychological: No Symptoms Endocrine: No Symptoms Hematologic/Lymphatic: No Symptoms Immunological/Allergic: No Symptoms Objective Exam General Appearance: no apparent distress, alert, obese Neurologic Exam: alert, oriented x 3, cooperative, normal mood/affect, nml cerebellar function, sensation nml, No motor deficits Skin Exam: normal color, warm, dry, other (skin lesions BL arms, flat, dry, red, irregular- improving overnight with cream applied.) Eye Exam: PERRL, EOMI, eyes nml inspection Ears, Nose, Throat Exam: normal ENT inspection, pharynx normal, moist mucous me mbranes Neck Exam: normal inspection, non-tender, supple, full range of motion, other (neck edema) Respiratory Exam: normal breath sounds, lungs clear, wheezing, No respiratory distress Cardiovascular Exam: regular rate/rhythm, normal heart sounds, tachycardia, edema (overall improved- TEDS on BLLE) Gastrointestinal/Abdomen Exam: soft, No tenderness, No mass Extremity Exam: normal inspection, normal range of motion Back Exam: normal inspection, normal range of motion, No CVA tenderness, No vertebral tenderness Pelvic Exam: deferred Rectal Exam: deferred Objective Data Vital Signs: Vital Signs - 24 hr Temp Pulse Resp BP Pulse Ox 06/30/25 08:00 97.9 F 115 H 18 185/114 94 L 06/30/25 04:01 98 06/30/25 04:00 98.4 F 115 H 19 176/103 96 06/30/25 00:00 98.0 F 117 H 24 170/94 94 L 06/29/25 20:40 120 H 16 96 06/29/25 20:00 98.4 F 120 H 24 174/103 96 06/29/25 16:00 97.8 F 114 H 20 184/101 98 06/29/25 12:54 107 H 20 97 06/29/25 12:00 97.9 F 111 H 20 139/97 98 Pain Assessment - Last Documented Pain Intensity 0 Pain Scale Used 0-10 Pain Scale Intake and Output: Intake & Output 06/27/25 06/28/25 06/29/25 06/30/25 11:59 11:59 11:59 11:59 Intake Total 4502 1680 Output Total 4000 2450 Balance 502 -770 Weight 110.6 kg 107.6 kg 108 kg Lab Results: Lab Results-Last 24 Hours 06/29/25 06/29/25 06/29/25 Range/Units 11:25 11:25 20:15 WBC (3.98-10.04) x10^3/uL RBC (3.93-5.22) x10^6/uL Hgb (11.2-15.7) g/dL Hct (34.1-44.9) % MCV (79.4-94.8) fL MCH (25.6-32.2) pg MCHC (32.2-35.5) g/dL RDW (11.7-14.4) % Plt Count (182-369) x10^3/uL MPV (9.4-12.3) fL Sodium (135-145) mmol/L Potassium 3.3 L 4.1 D (3.5-5.1) mmol/L Chloride (98-107) mmol/L Carbon Dioxide (22-30) mmol/L Anion Gap (5-15) MEQ/L BUN (7-17) mg/dL Creatinine (0.52-1.04) mg/dL Estimated GFR ML/MIN Glucose (74-106) mg/dL Calcium (8.4-10.2) mg/dL Magnesium (1.6-2.3) mg/dL Total Bilirubin (0.2-1.3) mg/dL AST (14-36) U/L ALT (0-35) U/L Alkaline Phosphatase (38-126) U/L Serum Total Protein (6.3-8.2) g/dL Albumin (3.5-5.0) g/dL TSH 3rd Generation 3.454 (0.470-4.680) mIU/L 06/30/25 06/30/25 Range/Units 04:35 04:35 WBC 11.1 H (3.98-10.04) x10^3/uL RBC 4.90 (3.93-5.22) x10^6/uL Hgb 10.7 L (11.2-15.7) g/dL Hct 37.1 (34.1-44.9) % MCV 75.7 L (79.4-94.8) fL MCH 21.8 L (25.6-32.2) pg MCHC 28.8 L (32.2-35.5) g/dL RDW 17.5 H (11.7-14.4) % Plt Count 370 H (182-369) x10^3/uL MPV 9.4 (9.4-12.3) fL Sodium 136 (135-145) mmol/L Potassium 3.9 (3.5-5.1) mmol/L Chloride 103 (98-107) mmol/L Carbon Dioxide 26 (22-30) mmol/L Anion Gap 10.7 (5-15) MEQ/L BUN 24 H (7-17) mg/dL Creatinine 1.13 H (0.52-1.04) mg/dL Estimated GFR 64.3 ML/MIN Glucose 113 H (74-106) mg/dL Calcium 8.4 (8.4-10.2) mg/dL Magnesium 2.0 (1.6-2.3) mg/dL Total Bilirubin 0.80 (0.2-1.3) mg/dL AST 37 H (14-36) U/L ALT 75 H (0-35) U/L Alkaline Phosphatase 110 (38-126) U/L Serum Total Protein 6.2 L (6.3-8.2) g/dL Albumin 3.2 L (3.5-5.0) g/dL TSH 3rd Generation (0.470-4.680) mIU/L Radiology Exams: Radiology Procedures Category Date Time Status CHEST 1 VIEW (PORTABLE) Routine Exams 06/29/25 11:28 Completed CHEST WITH CONTRAST [CT] Stat Exams 06/28/25 11:54 Completed ECHO W/2D AND DOPPLER [US] Routine Exams 06/29/25 16:25 Taken VENOUS BILATERAL EXTREMITY [US] Stat Exams 06/28/25 11:55 Completed Medications: Medications Generic Name Dose Route Start Last Admin Trade Name Freq PRN Reason Stop Dose Admin Acetaminophen 650 mg 06/28/25 17:13 06/28/25 22:35 Acetaminophen 325 Mg Tablet PO 07/28/25 17:12 650 mg Q6H PRN PRN Administration PAIN, FEVER, HEADACHE Albuterol/Ipratropium 3 ml 06/29/25 11:27 06/30/25 08:35 Ipratropium/Albuterol Sulfate 3 Ml Ampul.Neb IH 07/29/25 11:26 3 ml Q4HPRN PRN Administration SHORTNESS OF BREATH/WHEEZING Amlodipine Besylate 10 mg 06/30/25 10:00 Amlodipine Besylate 5 Mg Tablet PO 07/30/25 09:59 QAM ELANA Furosemide 40 mg 06/29/25 10:00 06/29/25 10:32 Furosemide 40 Mg/4 Ml Vial IV 07/29/25 09:59 40 mg DAILY ELANA Administration Heparin Sodium (Beef Lung) 5,000 unit 06/28/25 22:00 06/29/25 21:39 Heparin 5000 Units/0.5 Ml 5,000 Unit/0.5 Ml Syr SQ 07/28/25 21:59 5,000 unit BID ELANA Administration Hydrophilic Ointment 1 gm 06/29/25 13:00 06/29/25 13:59 Mineral Oil/Pet Hy-Phl 50 Gm Tube TP 07/29/25 12:59 1 gm DAILY ELANA Administration Lisinopril 20 mg 06/30/25 10:00 Lisinopril 20 Mg Tablet PO 07/30/25 09:59 DAILY ELANA Metformin HCl 500 mg 06/29/25 17:00 06/30/25 08:13 Metformin Hcl Er 500 Mg Tab PO 07/29/25 16:59 500 mg BIDWM ELANA Administration Multi-Ingredient Ointment 0.5 gm 06/29/25 13:00 06/29/25 13:59 Zinc Oxide 30 Gm/1 Tube Tube TP 07/29/25 12:59 0.5 gm DAILY ELANA Administration Nicotine 21 mg 06/28/25 17:15 06/29/25 10:32 Nicotine 21 Mg/Patch Patch TOP 07/28/25 17:14 21 mg Q24H10 ELANA Administration Ondansetron HCl 4 mg 06/28/25 16:24 Ondansetron Hcl 4 Mg/2 Ml Vial IV 07/28/25 16:23 Q6H PRN PRN NAUSEA/VOMITING Pantoprazole Sodium 20 mg 06/29/25 10:00 06/29/25 10:33 Pantoprazole 20 Mg Tab PO 07/29/25 09:59 20 mg DAILY ELANA Administration Quetiapine Fumarate 25 mg 06/28/25 22:00 06/29/25 21:40 Quetiapine Fumarate 25 Mg Tablet PO 07/28/25 21:59 25 mg HS ELANA Administration Discontinued Medications Generic Name Dose Route Start Last Admin Trade Name Freq PRN Reason Stop Dose Admin Acetaminophen 650 mg 06/28/25 16:24 Acetaminophen 325 Mg Tablet PO 07/28/25 16:23 Q4H PRN PRN PAIN, FEVER, HEADACHE Amlodipine Besylate 10 mg 06/29/25 18:56 06/29/25 20:17 Amlodipine Besylate 5 Mg Tablet PO 06/29/25 18:57 10 mg STAT ONE Administration Diphenhydramine HCl 25 mg 06/29/25 11:50 06/29/25 12:03 Diphenhydramine Hcl 25 Mg Capsule PO 06/29/25 11:51 25 mg STAT ONE Administration Furosemide 40 mg 06/28/25 13:41 06/28/25 13:58 Furosemide 40 Mg/4 Ml Vial IV 06/28/25 13:42 40 mg STAT ONE Administration Furosemide Confirm 06/28/25 13:57 Furosemide 40 Mg/4 Ml Vial Administered 06/28/25 13:58 Dose 40 mg .ROUTE .STK-MED ONE Hydralazine HCl 10 mg 06/28/25 17:18 06/28/25 17:39 Hydralazine Hcl 20 Mg/Ml Vial IV 06/28/25 17:19 10 mg STAT ONE Administration Hydralazine HCl 10 mg 06/28/25 19:23 06/29/25 06:53 Hydralazine Hcl 20 Mg/Ml Vial IV 07/28/25 19:22 10 mg Q4H PRN PRN Administration hypertension Sodium Chloride 250 mls @ 250 mls/hr 06/28/25 12:00 06/28/25 13:37 Sodium Chloride 0.9% 250 Ml IV 06/28/25 12:59 Infused .Q1H ELANA Infusion Potassium Chloride 20 meq in 100 mls @ 50 mls/hr 06/29/25 06:44 06/29/25 06:56 Potassium Chloride 20 Meq In Water 100ml IV 06/29/25 08:43 50 mls/hr STAT ONE Administration Sodium Chloride 500 mls @ 50 mls/hr 06/29/25 06:45 06/29/25 06:56 Sodium Chloride 0.9% 500 Ml IV 06/30/25 06:44 50 mls/hr .Q10H ELANA Administration Labetalol HCl 10 mg 06/28/25 11:41 06/28/25 11:45 Labetalol Hcl 20 Mg/4 Ml Disp.Syringe IV 06/28/25 11:42 10 mg STAT ONE Administration Labetalol HCl Confirm 06/28/25 11:44 Labetalol Hcl 20 Mg/4 Ml Disp.Syringe Administered 06/28/25 11:45 Dose 20 mg IV .STK-MED ONE Labetalol HCl 10 mg 06/28/25 13:35 06/28/25 13:36 Labetalol Hcl 20 Mg/4 Ml Disp.Syringe IV 06/28/25 13:36 10 mg STAT ONE Administration Labetalol HCl Confirm 06/28/25 21:23 Labetalol Hcl 20 Mg/4 Ml Disp.Syringe Administered 06/28/25 21:24 Dose 20 mg IV .STK-MED ONE Labetalol HCl 10 mg 06/28/25 22:21 06/28/25 22:36 Labetalol Hcl 20 Mg/4 Ml Disp.Syringe IV 07/28/25 22:20 10 mg Q6H PRN PRN Administration HYPERTENSION Lisinopril 10 mg 06/28/25 16:23 06/28/25 18:04 Lisinopril 10 Mg Tablet PO 06/28/25 16:24 Not Given STAT STA Lisinopril 10 mg 06/29/25 10:00 Lisinopril 10 Mg Tablet PO 07/29/25 09:59 DAILY ELANA Lisinopril 10 mg 06/28/25 22:00 06/28/25 22:36 Lisinopril 10 Mg Tablet PO 06/28/25 22:01 10 mg ONCE ONE Administration Lisinopril 20 mg 06/29/25 07:54 06/29/25 08:55 Lisinopril 20 Mg Tablet PO 06/29/25 07:55 20 mg STAT ONE Administration Lisinopril 20 mg 06/30/25 10:00 Lisinopril 20 Mg Tablet PO 07/30/25 09:59 DAILY ELANA Lisinopril 10 mg 06/30/25 10:00 Lisinopril 20 Mg Tablet PO 07/30/25 09:59 DAILY ELANA Nitrofurantoin Macrocrystals 100 mg 06/28/25 17:00 06/28/25 17:38 Nitrofurantoin Macro 100 Mg Capsule PO 07/28/25 16:59 100 mg BIDWM ELANA Administration Potassium Bicarbonate 25 meq 06/29/25 12:15 06/29/25 18:11 Potassium Bicarbonate 25 Meq Tab PO 06/29/25 16:16 25 meq Q2H ELANA Administration Multi-Disciplinary Progress Notes: Multi-Disciplinary Progress Notes 06/29/25 20:59 Radiology Note by ARMANDO REID TRANSTHORACIC ECHOCARDIOGRAM 06/29/2025 1. Normal chamber sizes. 2. Mild concentric left ventricular hypertrophy. 3. Left ventricular systolic function is at the lower limits of normal with an estimated EF 50-55%. No focal wall motion abnormalities. 4. Unable to determine the grade of diastolic dysfunction with the patient's underlying sinus tachycardia. 5. Mild aortic and mitral sclerosis without stenosis. 6. Doppler: Mild mitral and tricuspid regurgitation, trace aortic regurgitation. 7. Mildly elevated PA systolic pressure with an estimated PA systolic pressure 33 mmHg. 8. Mildly elevated right atrial pressure (8 mmHg). 9. Trivial posterior pericardial effusion. Armando Reid MD [facility] Initialized on 06/29/25 20:59 - END OF NOTE 06/29/25 10:27 Respiratory Note by Krysten Ellison HOME SLEEP STUDY HAS BEEN SCHEDULED FOR ThursdayJune AT 5PM. Initialized on 06/29/25 10:27 - END OF NOTE Assessment/Plan (1) CHF (congestive heart failure) Current Visit: Yes Status: Acute Code(s): I50.9 - HEART FAILURE, UNSPECIFIED (2) UTI (urinary tract infection) Current Visit: Yes Status: Acute Code(s): N39.0 - URINARY TRACT INFECTION, SITE NOT SPECIFIED (3) Leukocytosis Current Visit: Yes Status: Acute Code(s): D72.829 - ELEVATED WHITE BLOOD CELL COUNT, UNSPECIFIED (4) Transaminitis Current Visit: Yes Status: Acute Code(s): R74.01 - ELEVATION OF LEVELS OF LIVER TRANSAMINASE LEVELS (5) Hypertension Current Visit: Yes Status: Acute Code(s): I10 - ESSENTIAL (PRIMARY) HYPERTENSION (6) JULIANN (acute kidney injury) Current Visit: Yes Status: Acute Code(s): N17.9 - ACUTE KIDNEY FAILURE, UNSPECIFIED (7) D-dimer, elevated Current Visit: Yes Status: Acute Code(s): R79.89 - OTHER SPECIFIED ABNORMAL FINDINGS OF BLOOD CHEMISTRY (8) Anasarca Current Visit: Yes Status: Acute Code(s): R60.1 - GENERALIZED EDEMA (9) Cardiomegaly Current Visit: Yes Status: Acute Code(s): I51.7 - CARDIOMEGALY (10) Obstructive sleep apnea Current Visit: Yes Status: Acute Code(s): G47.33 - OBSTRUCTIVE SLEEP APNEA (ADULT) (PEDIATRIC) (11) Hyperglycemia Current Visit: Yes Status: Acute Code(s): R73.9 - HYPERGLYCEMIA, UNSPECIFIED (12) Fatty liver Current Visit: Yes Status: Acute Code(s): K76.0 - FATTY (CHANGE OF) LIVER, NOT ELSEWHERE CLASSIFIED (13) Tachycardia Current Visit: Yes Status: Acute Code(s): R00.0 - TACHYCARDIA, UNSPECIFIED (14) Smoker Current Visit: Yes Status: Chronic Code(s): F17.200 - NICOTINE DEPENDENCE, UNSPECIFIED, UNCOMPLICATED (15) Insomnia Current Visit: Yes Status: Chronic Code(s): G47.00 - INSOMNIA, UNSPECIFIED (16) Chronic headaches Current Visit: Yes Status: Acute Code(s): R51.9 - HEADACHE, UNSPECIFIED; G89.29 - OTHER CHRONIC PAIN (17) Morbid obesity with BMI of 50.0-59.9, adult Current Visit: Yes Status: Chronic Code(s): E66.01 - MORBID (SEVERE) OBESITY DUE TO EXCESS CALORIES; Z68.43 - BODY MASS INDEX [BMI] 50.0-59.9, ADULT (18) Prediabetes Current Visit: Yes Status: Acute Code(s): R73.03 - PREDIABETES (19) Hypokalemia Current Visit: Yes Status: Acute Code(s): E87.6 - HYPOKALEMIA (20) Neck swelling Current Visit: Yes Status: Acute Assessment & Plan: (1) CHF (congestive heart failure) Current Visit: Yes Status: Acute Assessment & Plan: - BNP 13,700 - Stop IBP - EKG - ECHO - TELE - + Smoker - UDS - Trops X2 negative- trend - Cardiology consult - Lasix IV daily - Strict I&O's - Up with assist - CTA reviewed - +3 BLLE edema- VD negative for DVT 06/29 - CXR pending - + Wheezing today- duonebs ordered PRN - 3 kg weight loss last night - IVF stopped this AM that were started last night for K-rider - Continue lasix 40 daily - Pt's oral intake as much as input last night- education provided- consider fluid restriction - TEDS - Echo pending - CBC, CMP reviewed 06/30 - Cardiology note reviewed and agree with plan of care: Will evaluate for a pheochromocytoma with a 24 hour urine for catecholamines and metanephrines. Before adding spironolactone, will screen for primary aldosteronism by sending plasma renin activity and serum aldoserone levels. Start amlodipine 10 mg daily. Short term target BP < 140/90. MCFP target BP <130/80. - EF 50-55%- systolic heart failure - CBC, CMP reviewed - 1 kg weight gain overnight Code(s): I50.9 - HEART FAILURE, UNSPECIFIED (2) UTI (urinary tract infection) Current Visit: Yes Status: Acute Assessment & Plan: - Macrobid BID - UA reviewed - UC pending - CBC, CMP reviewed - WBC 13.3 - BC x2 pending 06/29 - UC negative- antibiotic stopped - WBC 12.9 improved 06/30 - BC x2 negative - Code(s): N39.0 - URINARY TRACT INFECTION, SITE NOT SPECIFIED (3) Leukocytosis Current Visit: Yes Status: Acute Assessment & Plan: - + UTI - WBC 13.3 - Flu/COVID/RSV negative - CBC, CMP reviewed - Radiology results reviewed 06/29 - WBC 12.9 improved - CXR pending 06/30 - WBC 11.1- improved - CXR: Portable chest inflated and clear. Heart is enlarged. Bony thorax intact. No acute findings. Code(s): D72.829 - ELEVATED WHITE BLOOD CELL COUNT, UNSPECIFIED (4) Transaminitis Current Visit: Yes Status: Acute Assessment & Plan: - AST 73, ALT 139 - 2:2 CHF 06/29 - AST 56, ALT 114- improved 06/30 - AST 37, ALT 75 Code(s): R74.01 - ELEVATION OF LEVELS OF LIVER TRANSAMINASE LEVELS (5) Hypertension Current Visit: Yes Status: Acute Assessment & Plan: - Labetalol gave IV x2 in ER - Lisinopril started - Trend BP 06/29 - Labetalol and hydralizine gave IV last night for uncontrolled HTN - Lisinopril 20mg PO started this AM - IV Lasix gave this AM - BP stable after meds gave this AM 06/30 - Amlodipine added by cardiology last night - BP continues to be elevated despite addition of amlodipine - Cardiology to adjust meds - Consider Beta Paulette as also has tachycardia Code(s): I10 - ESSENTIAL (PRIMARY) HYPERTENSION (6) JULIANN (acute kidney injury) Current Visit: Yes Status: Acute Assessment & Plan: - Creat 1.17- trend - Receiving lasix - Received 250ml fluid bolus in ER 06/29 - Resolved Code(s): N17.9 - ACUTE KIDNEY FAILURE, UNSPECIFIED (7) D-dimer, elevated Current Visit: Yes Status: Acute Assessment & Plan: - D-Dimer 1.27 - RA 99% - CTA : Impression: 1. Negative pulmonary embolus. No acute cardiopulmonary abnormalities. 2. Incidental cardiomegaly, right middle lobe atelectasis/scarring, fatty liver, and abdominal anasarca. Code(s): R79.89 - OTHER SPECIFIED ABNORMAL FINDINGS OF BLOOD CHEMISTRY (8) Anasarca Current Visit: Yes Status: Acute Assessment & Plan: - As seen on CT - Lasix IV - Strict I&O's - Tele - 2:2 CHF Code(s): R60.1 - GENERALIZED EDEMA (9) Cardiomegaly Current Visit: Yes Status: Acute Assessment & Plan: - As seen on CTA - Echo reviewed - HX of lound snoring, chronic morbid obesity, and smoker, chronic uncontrolled HTN- education provided Code(s): I51.7 - CARDIOMEGALY (10) Obstructive sleep apnea Current Visit: Yes Status: Acute Assessment & Plan: - Will order OP sleep study - + Loud snoring at night per Code(s): G47.33 - OBSTRUCTIVE SLEEP APNEA (ADULT) (PEDIATRIC) (11) Hyperglycemia Current Visit: Yes Status: Acute Assessment & Plan: - Glucose on admission 129 - A1C 6.33- pre-diabetic Code(s): R73.9 - HYPERGLYCEMIA, UNSPECIFIED (12) Fatty liver Current Visit: Yes Status: Acute Assessment & Plan: - As seen on CTA - F/U OP Code(s): K76.0 - FATTY (CHANGE OF) LIVER, NOT ELSEWHERE CLASSIFIED (13) Tachycardia Current Visit: Yes Status: Acute Assessment & Plan: - Tele - 2:2 CHF- see plan above - Trend - EKG - Echo reviewed Code(s): R00.0 - TACHYCARDIA, UNSPECIFIED (14) Smoker Current Visit: Yes Status: Chronic Assessment & Plan: - Advised cessation - Education provided - Nicotine patch - Duonebs PRN- wheezing Code(s): F17.200 - NICOTINE DEPENDENCE, UNSPECIFIED, UNCOMPLICATED (15) Insomnia Current Visit: Yes Status: Chronic Assessment & Plan: - Start seroquel At - Has been taking 2 OTC sleep aides at night every night that includes Benadryl. Code(s): G47.00 - INSOMNIA, UNSPECIFIED (16) Chronic headaches Current Visit: Yes Status: Acute Assessment & Plan: - Likely 2:2 sleep apnea and HTN- see plans above - Stop IBP - Tylenol PRN Code(s): R51.9 - HEADACHE, UNSPECIFIED; G89.29 - OTHER CHRONIC PAIN (17) Morbid obesity with BMI of 50.0-59.9, adult Current Visit: Yes Status: Chronic Assessment & Plan: - Advised diet and exercise control Code(s): E66.01 - MORBID (SEVERE) OBESITY DUE TO EXCESS CALORIES; Z68.43 - BODY MASS INDEX [BMI] 50.0-59.9, ADULT (18) Prediabetes Current Visit: Yes Status: Acute Assessment & Plan: - A1C 6.33 with morbid obesity, younger than 60 yrs old, no hx of gestational diabetes - Start metformin 500mg BID - Education on lifestyle changes with diet and exercise provided. Code(s): R73.03 - PREDIABETES (19) Hypokalemia Current Visit: Yes Status: Acute Assessment & Plan: - K+ 3.2- replaced - IVF order placed with IV K-rider last night- this was stopped this AM as pt has CHF. - Repeat K+ 3.3- replaced with oral K-lite 06/30 - Resolved Code(s): E87.6 - HYPOKALEMIA (20) Neck swelling Current Visit: Yes Status: Acute Assessment & Plan: - Benadryl x1 now - TSH -+ submandibular lymphadenopathy BL - Consdier CT neck - Denies resp distress or difficulty breathing 06/30 - Improved- monitor Code(s): R22.1 - LOCALIZED SWELLING, MASS AND LUMP, NECK Code(s): R22.1 - LOCALIZED SWELLING, MASS AND LUMP, NECK (21) Rash Current Visit: Yes Status: Acute Assessment & Plan: - BL arms - Aquaphor and zinc started last night, today sxs are improved. VTE: Lovenox PPI: Protonix Next of KIN: Code status: Full D/C Plan: Tomorrow? Plan of care time > 50 minutes Code(s): R21 - RASH AND OTHER NONSPECIFIC SKIN ERUPTION
[2025-06-30] MEDS ORDERED: Zestril 20 MG PO SCH ×2 (10:00)
[2025-06-30] MEDS: Zestril 20 MG PO SCH ×2 (10:45→14:09)
[2025-06-30] MEDS: NORVASC 5 MG PO SCH (10:45)
[2025-06-30] MEDS: Aldactone 25 MG PO SCH (10:45)
[2025-06-30 19:46] VITALS: RESP 16
[2025-06-30] MEDS: HYTRIN 1 MG PO SCH (22:19)
[2025-07-01 05:52] LABS: Hematocrit 38.9 % (34.1-44.9); Hemoglobin 10.9 g/dL (11.2-15.7); Mean Corpuscular Hemoglobin 21.5 pg (25.6-32.2); Mean Corpuscular Hgb Concent. 28.0 g/dL (32.2-35.5); Platelet Count 354 x10^3/uL (182-369); Red Blood Count 5.07 x10^6/uL (3.93-5.22); White Blood Count 9.1 x10^3/uL (3.98-10.04)
[2025-07-01 06:12] LABS: Calcium 8.8 mg/dL (8.4-10.2); Carbon Dioxide 27.0 mmol/L (22-30); Creatinine 1 0.95 mg/dL (0.52-1.04); EST GLOMERULAR FILTRATION RATE 79.1 ML/MIN; Glucose 99.0 mg/dL (74-106); Potassium 3.6 mmol/L (3.5-5.1); SGOT/AST 37.0 U/L (14-36); SGPT/ALT 58.0 U/L (0-35); Total Protein 6.5 g/dL (6.3-8.2)
[2025-07-01 07:35] VITALS: TEMP 97.7
[2025-07-01 09:56] LABS: Slide Review YES
[2025-07-01] MEDS ORDERED: Lopressor 50 MG PO SCH (10:00)
[2025-07-01] MEDS ORDERED: HYTRIN 1 MG PO SCH (10:15)
[2025-07-01] MEDS: NORVASC 5 MG PO SCH (11:25)
[2025-07-01 11:28] VITALS: BP 169/99; PULSE 123; O2SAT 95
--- NOTE | 2025-07-01 12:17 | PCM.NOTE ---
Date and Time: 07/01/25 1211 Objective Data Vital Signs: Vital Signs - 24 hr Temp Pulse Resp BP Pulse Ox 07/01/25 11:26 97.7 F 123 H 16 169/99 95 07/01/25 07:32 97.7 F 114 H 16 180/99 91 L 07/01/25 07:00 104 H 16 96 07/01/25 04:00 97.9 F 110 H 16 176/97 07/01/25 00:39 97.9 F 115 H 16 142/91 95 06/30/25 23:51 111 H 146/91 06/30/25 22:25 180/114 06/30/25 19:57 95 06/30/25 19:56 114 H 16 95 06/30/25 19:45 98.1 F 115 H 16 174/97 95 06/30/25 16:00 98.2 F 115 H 18 186/118 97 Pain Assessment - Last Documented Pain Intensity 0 Pain Scale Used 0-10 Pain Scale Intake and Output: Intake & Output 06/29/25 06/30/25 07/01/25 07/02/25 11:59 11:59 11:59 11:59 Intake Total 4502 2040 1010 Output Total 4000 2450 3400 Balance 294 -509 -0545 Weight 107.6 kg 108 kg 107.5 kg LAB: I have reviewed the Labs in [facility]. Lab Results: Lab Results-Last 24 Hours 07/01/25 07/01/25 Range/Units 05:47 05:47 WBC 9.1 (3.98-10.04) x10^3/uL RBC 5.07 (3.93-5.22) x10^6/uL Hgb 10.9 L (11.2-15.7) g/dL Hct 38.9 (34.1-44.9) % MCV 76.7 L (79.4-94.8) fL MCH 21.5 L (25.6-32.2) pg MCHC 28.0 L (32.2-35.5) g/dL RDW 17.5 H (11.7-14.4) % Plt Count 354 (182-369) x10^3/uL MPV 9.0 L (9.4-12.3) fL Sodium 136 (135-145) mmol/L Potassium 3.6 (3.5-5.1) mmol/L Chloride 102 (98-107) mmol/L Carbon Dioxide 27 (22-30) mmol/L Anion Gap 10.9 (5-15) MEQ/L BUN 15 (7-17) mg/dL Creatinine 0.95 (0.52-1.04) mg/dL Estimated GFR 79.1 ML/MIN Glucose 99 (74-106) mg/dL Calcium 8.8 (8.4-10.2) mg/dL Total Bilirubin 0.90 (0.2-1.3) mg/dL AST 37 H (14-36) U/L ALT 58 H (0-35) U/L Alkaline Phosphatase 102 (38-126) U/L Serum Total Protein 6.5 (6.3-8.2) g/dL Albumin 3.4 L (3.5-5.0) g/dL Slides for Path Review YES Radiology Exams: Radiology Procedures Category Date Time Status ABDOMEN AND PELVIS W&WO CONTRA [CT] Routine Exams 07/01/25 10:45 Ordered CHEST 1 VIEW (PORTABLE) Routine Exams 06/29/25 11:28 Completed ECHO W/2D AND DOPPLER [US] Routine Exams 06/29/25 16:25 Taken Assessment & Plan (1) Heart failure with preserved ejection fraction (HFpEF) Current Visit: Yes Status: Acute Qualifiers: Heart failure chronicity: acute Qualified Code(s): I50.31 - Acute diastolic (congestive) heart failure Code(s): I50.30 - UNSPECIFIED DIASTOLIC (CONGESTIVE) HEART FAILURE (2) Hypertensive emergency Current Visit: Yes Status: Acute Code(s): I16.1 - HYPERTENSIVE EMERGENCY (3) Hypertensive heart disease with heart failure Current Visit: Yes Status: Acute - Encounter Encounter: "The entirety of this encounter was performed via Telemedicine using audio and visual "
--- NOTE | 2025-07-01 12:37 | PCM.DS ---
Discharge Summary Date of Admission: 06/28/25 16:10 Date of Discharge: 07/03/25 Admitting Physician: BABAR YORK MD Consults: Consults on Case 06/28/25 16:45 Consult Cardiology ROUTINE Primary Care Provider: NO FAMILY DOCTOR Allergies Allergies amoxicillin Allergy (Intermediate, Verified 06/28/25 16:52) [facility] Summary - Hospital Course Hospital Course: 06/28/25 is a 39 year old female with a history of smoking, daily headaches managed with ibuprofen, morbid obesity, and insomnia who presented on 06/28/25 with worsening shortness of breath and bilateral lower extremity swelling. At urgent care, her oxygen saturation was 8586% on room air, though it was 100% upon arrival to the hospital. She denied chest pain, fever, cough, or recent travel. Initial evaluation revealed tachycardia with heart rate of 129 bpm, elevated blood pressure, and anasarca. CTA chest was negative for pulmonary embolism but showed cardiomegaly and fatty liver. BNP was markedly elevated at 13,700, troponins were negative, and urinalysis was positive for UTI, for which antibiotics were started. She received IV Lasix, IV labetalol, and IV fluids. On 06/29/25, she continued to exhibit generalized edema but had a 3 kg weight loss overnight. Blood pressure stabilized with lisinopril, and potassium was replaced. Liver enzymes improved, creatinine returned to baseline, and she was started on breathing treatments for wheezing. Education was provided regarding smoking cessation, diet, exercise, and sleep study, all of which she agreed to pursue. On 06/30/25, she remained hypertensive despite addition of amlodipine, though edema improved. Echocardiogram showed EF 5055% with systolic heart failure and trivial pericardial effusion. Labs showed improved WBC and liver enzymes, with creatinine slightly elevated at 1.13. On 07/01/25, she expressed desire to leave due to responsibilities at home. Blood pressure remained elevated, and her case was discussed with cardiology, who adjusted medications. A CT abdomen/pelvis was ordered to evaluate for pheochromocytoma, and an iron panel was ordered for microcytic anemia. Overall, labs showed improvement. If blood pressure stabilizes, she is appropriate for discharge home this afternoon with outpatient follow up arranged. - Vitals & Intake/Output Vital Signs: Vital Signs Temperature 97.7 F 07/01/25 11:26 Pulse Rate 123 H 07/01/25 11:26 Respiratory Rate 16 07/01/25 11:26 Blood Pressure 169/99 07/01/25 11:26 O2 Sat by Pulse Oximetry 95 07/01/25 11:26 Intake & Output: Intake & Output 06/29/25 06/30/25 07/01/25 07/02/25 11:59 11:59 11:59 11:59 Intake Total 4502 2040 1010 Output Total 4000 2450 3400 Balance 502 410 -1270 Weight 107.6 kg 108 kg 107.5 kg - Lab Result Diagrams: 07/01/25 05:47 07/01/25 05:47 Lab Results-Last 24 Hrs: Lab Results-Last 24 Hours 07/01/25 07/01/25 Range/Units 05:47 05:47 WBC 9.1 (3.98-10.04) x10^3/uL RBC 5.07 (3.93-5.22) x10^6/uL Hgb 10.9 L (11.2-15.7) g/dL Hct 38.9 (34.1-44.9) % MCV 76.7 L (79.4-94.8) fL MCH 21.5 L (25.6-32.2) pg MCHC 28.0 L (32.2-35.5) g/dL RDW 17.5 H (11.7-14.4) % Plt Count 354 (182-369) x10^3/uL MPV 9.0 L (9.4-12.3) fL Sodium 136 (135-145) mmol/L Potassium 3.6 (3.5-5.1) mmol/L Chloride 102 (98-107) mmol/L Carbon Dioxide 27 (22-30) mmol/L Anion Gap 10.9 (5-15) MEQ/L BUN 15 (7-17) mg/dL Creatinine 0.95 (0.52-1.04) mg/dL Estimated GFR 79.1 ML/MIN Glucose 99 (74-106) mg/dL Calcium 8.8 (8.4-10.2) mg/dL Total Bilirubin 0.90 (0.2-1.3) mg/dL AST 37 H (14-36) U/L ALT 58 H (0-35) U/L Alkaline Phosphatase 102 (38-126) U/L Serum Total Protein 6.5 (6.3-8.2) g/dL Albumin 3.4 L (3.5-5.0) g/dL Slides for Path Review YES Micro Results-Entire Visit: Microbiology 06/28/25 10:51 Urine Culture - Final Urine, Void NO GROWTH 06/28/25 11:07 Blood Culture - Preliminary Blood 06/28/25 11:14 Blood Culture - Preliminary Blood - Radiology Exams Ordered Rad Exams-Entire Visit: Radiology Procedures Category Date Time Status ABDOMEN AND PELVIS W&WO CONTRA [CT] Stat Exams 07/01/25 10:45 Ordered CHEST 1 VIEW (PORTABLE) Routine Exams 06/29/25 11:28 Completed ECHO W/2D AND DOPPLER [US] Routine Exams 06/29/25 16:25 Taken - Procedures and Test Procedures and Tests throughout Hospitalization: Therapy Orders & Screens 06/28/25 16:24 EKG REPEAT IN AM Comment: 06/28/25 16:46 RT Screen per Nursing Assess ONCE Comment: Protocol Order Physician Instructions: Greater than 3 points order RT Admission Screen Reason For Exam: Triggered on Admission Diagnosis: CHF Diagnosis: CHF Pneumonia: No Home O2: No Asthma: Yes CHF: Yes Home CPAP/BIPAP: No Home Nebs/MDI: No Total Points: 7 Smoking Cessation Education ONCE Comment: Diagnosis: CHF Smoking Status: Current every day smoker How long have you smoked: years Approximately how many cigarettes per day: 1-1.5 packs/day Do you dip or chew tobacco: No 06/28/25 17:09 Respiratory Therapy Assessment DAILY Comment: Diagnosis: CHF Discharge Exam General Appearance: no apparent distress, alert, obese Neurologic Exam: alert, oriented x 3, cooperative, normal mood/affect, nml cerebellar function, sensation nml, No motor deficits Eye Exam: PERRL, EOMI, eyes nml inspection Ears, Nose, Throat Exam: normal ENT inspection, pharynx normal, moist mucous membranes Neck Exam: normal inspection, non-tender, supple, full range of motion Respiratory Exam: normal breath sounds, lungs clear, No respiratory distress Cardiovascular Exam: regular rate/rhythm, normal heart sounds, edema (BLLE- improved with TEDS) Gastrointestinal/Abdomen Exam: soft, No tenderness, No mass Pelvic Exam: deferred Rectal Exam: deferred Back Exam: normal inspection, normal range of motion, No CVA tenderness, No vertebral tenderness Extremity Exam: normal inspection, normal range of motion Skin Exam: normal color, warm, dry Final Diagnosis/Problem List - Final Discharge Diagnosis/Problem (1) CHF (congestive heart failure) Current Visit: Yes Status: Acute Code(s): I50.9 - HEART FAILURE, UNSPECIFIED (2) UTI (urinary tract infection) Current Visit: Yes Status: Acute Code(s): N39.0 - URINARY TRACT INFECTION, SITE NOT SPECIFIED (3) Leukocytosis Current Visit: Yes Status: Acute Code(s): D72.829 - ELEVATED WHITE BLOOD CELL COUNT, UNSPECIFIED (4) Transaminitis Current Visit: Yes Status: Acute Code(s): R74.01 - ELEVATION OF LEVELS OF LIVER TRANSAMINASE LEVELS (5) Hypertension Current Visit: Yes Status: Acute Code(s): I10 - ESSENTIAL (PRIMARY) HYPERTENSION (6) JULIANN (acute kidney injury) Current Visit: Yes Status: Acute Code(s): N17.9 - ACUTE KIDNEY FAILURE, UNSPECIFIED (7) D-dimer, elevated Current Visit: Yes Status: Acute Code(s): R79.89 - OTHER SPECIFIED ABNORMAL FINDINGS OF BLOOD CHEMISTRY (8) Anasarca Current Visit: Yes Status: Acute Code(s): R60.1 - GENERALIZED EDEMA (9) Cardiomegaly Current Visit: Yes Status: Acute Code(s): I51.7 - CARDIOMEGALY (10) Obstructive sleep apnea Current Visit: Yes Status: Acute Code(s): G47.33 - OBSTRUCTIVE SLEEP APNEA (ADULT) (PEDIATRIC) (11) Hyperglycemia Current Visit: Yes Status: Acute Code(s): R73.9 - HYPERGLYCEMIA, UNSPECIFIED (12) Fatty liver Current Visit: Yes Status: Acute Code(s): K76.0 - FATTY (CHANGE OF) LIVER, NOT ELSEWHERE CLASSIFIED (13) Tachycardia Current Visit: Yes Status: Acute Code(s): R00.0 - TACHYCARDIA, UNSPECIFIED (14) Smoker Current Visit: Yes Status: Chronic Code(s): F17.200 - NICOTINE DEPENDENCE, UNSPECIFIED, UNCOMPLICATED (15) Insomnia Current Visit: Yes Status: Chronic Code(s): G47.00 - INSOMNIA, UNSPECIFIED (16) Chronic headaches Current Visit: Yes Status: Acute Code(s): R51.9 - HEADACHE, UNSPECIFIED; G89.29 - OTHER CHRONIC PAIN (17) Morbid obesity with BMI of 50.0-59.9, adult Current Visit: Yes Status: Chronic Code(s): E66.01 - MORBID (SEVERE) OBESITY DUE TO EXCESS CALORIES; Z68.43 - BODY MASS INDEX [BMI] 50.0-59.9, ADULT (18) Prediabetes Current Visit: Yes Status: Acute Code(s): R73.03 - PREDIABETES (19) Hypokalemia Current Visit: Yes Status: Acute Code(s): E87.6 - HYPOKALEMIA (20) Neck swelling Current Visit: Yes Status: Acute Code(s): R22.1 - LOCALIZED SWELLING, MASS AND LUMP, NECK (21) Rash Current Visit: Yes Status: Acute Assessment & Plan: (1) CHF (congestive heart failure) Current Visit: Yes Status: Acute Assessment & Plan: - BNP 13,700 - Stop IBP - EKG - ECHO - TELE - + Smoker - UDS - Trops X2 negative- trend - Cardiology consult - Lasix IV daily - Strict I&O's - Up with assist - CTA reviewed - +3 BLLE edema- VD negative for DVT 06/29 - CXR pending - + Wheezing today- duonebs ordered PRN - 3 kg weight loss last night - IVF stopped this AM that were started last night for K-rider - Continue lasix 40 daily - Pt's oral intake as much as input last night- education provided- consider fluid restriction - TEDS - Echo pending - CBC, CMP reviewed 06/30 - Cardiology note reviewed and agree with plan of care: Will evaluate for a pheochromocytoma with a 24 hour urine for catecholamines and metanephrines. Before adding spironolactone, will screen for primary aldosteronism by sending plasma renin activity and serum aldoserone levels. Start amlodipine 10 mg daily. Short term target BP < 140/90. nursing home target BP <130/80. - EF 50-55%- systolic heart failure - CBC, CMP reviewed - 1 kg weight gain overnight 07/01 - Continue Spirolactone and Torsemide OP - CBC, CMP reviewed - 1kg weight loss from yesterday Code(s): I50.9 - HEART FAILURE, UNSPECIFIED (2) UTI (urinary tract infection) Current Visit: Yes Status: Acute Assessment & Plan: - Macrobid BID - UA reviewed - UC pending - CBC, CMP reviewed - WBC 13.3 - BC x2 pending 06/29 - UC negative- antibiotic stopped - WBC 12.9 improved 06/30 - BC x2 negative Code(s): N39.0 - URINARY TRACT INFECTION, SITE NOT SPECIFIED (3) Leukocytosis Current Visit: Yes Status: Acute Assessment & Plan: - + UTI - WBC 13.3 - Flu/COVID/RSV negative - CBC, CMP reviewed - Radiology results reviewed 06/29 - WBC 12.9 improved - CXR pending 06/30 - WBC 11.1- improved - CXR: Portable chest inflated and clear. Heart is enlarged. Bony thorax intact. No acute findings. 07/01 - WBC normalized Code(s): D72.829 - ELEVATED WHITE BLOOD CELL COUNT, UNSPECIFIED (4) Transaminitis Current Visit: Yes Status: Acute Assessment & Plan: - AST 73, ALT 139 - 2:2 CHF 06/29 - AST 56, ALT 114- improved 06/30 - AST 37, ALT 75 07/01 - AST 37, ALT 58- improved- F/U OP with repeat labs with PCP Code(s): R74.01 - ELEVATION OF LEVELS OF LIVER TRANSAMINASE LEVELS (5) Hypertension Current Visit: Yes Status: Acute Assessment & Plan: - Labetalol gave IV x2 in ER - Lisinopril started - Trend BP 06/29 - Labetalol and hydralizine gave IV last night for uncontrolled HTN - Lisinopril 20mg PO started this AM - IV Lasix gave this AM - BP stable after meds gave this AM 06/30 - Amlodipine added by cardiology last night - BP continues to be elevated despite addition of amlodipine - Cardiology to adjust meds - Consider Beta Paulette as also has tachycardia 07/01 - Reviewed cardiology note and discussed plan of care. - No beta paulette for 7-14 days per cardiology as evaluating for pheochromocytomia - 24 hour completed- awaiting results- pheochromocytoma with a 24 hour urine for catecholamines and metanephrines. - CT abd/pelvis for eval of pheochromocytoma - Labs pending: to eval for primary aldosteronism by sending plasma renin activity and serum aldoserone levels- labs pending - Continue amlodipine 10 mg daily. Short term target BP < 140/90. nursing home target BP <130/80. - Hytrin 2mg ordered by cardiology this AM- continue at HS - Spirolactone 25 daily, Torsemide 20 mg daily, Amlodipine 10mg daily, lisinopril 40 daily- Continue per cardiology recs. Code(s): I10 - ESSENTIAL (PRIMARY) HYPERTENSION (6) JULIANN (acute kidney injury) Current Visit: Yes Status: Acute Assessment & Plan: - Creat 1.17- trend - Receiving lasix - Received 250ml fluid bolus in ER 06/29 - Resolved 06/30 - Creat 1.13 12/ -Resolved Code(s): N17.9 - ACUTE KIDNEY FAILURE, UNSPECIFIED (7) D-dimer, elevated Current Visit: Yes Status: Acute Assessment & Plan: - D-Dimer 1.27 - RA 99% - CTA : Impression: 1. Negative pulmonary embolus. No acute cardiopulmonary abnormalities. 2. Incidental cardiomegaly, right middle lobe atelectasis/scarring, fatty liver, and abdominal anasarca. Code(s): R79.89 - OTHER SPECIFIED ABNORMAL FINDINGS OF BLOOD CHEMISTRY (8) Anasarca Current Visit: Yes Status: Acute Assessment & Plan: - As seen on CT - Lasix IV - Strict I&O's - Tele - 2:2 CHF Code(s): R60.1 - GENERALIZED EDEMA (9) Cardiomegaly Current Visit: Yes Status: Acute Assessment & Plan: - As seen on CTA - Echo reviewed - HX of lound snoring, chronic morbid obesity, and smoker, chronic uncontrolled HTN- education provided Code(s): I51.7 - CARDIOMEGALY (10) Obstructive sleep apnea Current Visit: Yes Status: Acute Assessment & Plan: - Will order OP sleep study - + Loud snoring at night per Code(s): G47.33 - OBSTRUCTIVE SLEEP APNEA (ADULT) (PEDIATRIC) (11) Hyperglycemia Current Visit: Yes Status: Acute Assessment & Plan: - Glucose on admission 129 - A1C 6.33- pre-diabetic- started metformin Code(s): R73.9 - HYPERGLYCEMIA, UNSPECIFIED (12) Fatty liver Current Visit: Yes Status: Acute Assessment & Plan: - As seen on CTA - F/U OP Code(s): K76.0 - FATTY (CHANGE OF) LIVER, NOT ELSEWHERE CLASSIFIED (13) Tachycardia Current Visit: Yes Status: Acute Assessment & Plan: - Tele - 2:2 CHF- see plan above - Trend - EKG - Echo reviewed Code(s): R00.0 - TACHYCARDIA, UNSPECIFIED (14) Smoker Current Visit: Yes Status: Chronic Assessment & Plan: - Advised cessation - Education provided - Nicotine patch - Duonebs PRN- wheezing Code(s): F17.200 - NICOTINE DEPENDENCE, UNSPECIFIED, UNCOMPLICATED (15) Insomnia Current Visit: Yes Status: Chronic Assessment & Plan: - Start seroquel At HS - Has been taking 2 OTC sleep aides at night every night that includes Benadryl. Code(s): G47.00 - INSOMNIA, UNSPECIFIED (16) Chronic headaches Current Visit: Yes Status: Acute Assessment & Plan: - Likely 2:2 sleep apnea and HTN- see plans above - Stop IBP - Tylenol PRN Code(s): R51.9 - HEADACHE, UNSPECIFIED; G89.29 - OTHER CHRONIC PAIN (17) Morbid obesity with BMI of 50.0-59.9, adult Current Visit: Yes Status: Chronic Assessment & Plan: - Advised diet and exercise control Code(s): E66.01 - MORBID (SEVERE) OBESITY DUE TO EXCESS CALORIES; Z68.43 - BODY MASS INDEX [BMI] 50.0-59.9, ADULT (18) Prediabetes Current Visit: Yes Status: Acute Assessment & Plan: - A1C 6.33 with morbid obesity, younger than 60 yrs old, no hx of gestational diabetes - Start metformin 500mg BID - Education on lifestyle changes with diet and exercise provided. Code(s): R73.03 - PREDIABETES (19) Hypokalemia Current Visit: Yes Status: Acute Assessment & Plan: - K+ 3.2- replaced - IVF order placed with IV K-rider last night- this was stopped this AM as pt has CHF. - Repeat K+ 3.3- replaced with oral K-lite 06/30 - Resolved Code(s): E87.6 - HYPOKALEMIA (20) Neck swelling Current Visit: Yes Status: Acute Assessment & Plan: - Benadryl x1 now - TSH -+ submandibular lymphadenopathy BL - Consdier CT neck - Denies resp distress or difficulty breathing 06/30 - Improved- monitor Code(s): R22.1 - LOCALIZED SWELLING, MASS AND LUMP, NECK (21) Rash Current Visit: Yes Status: Acute Assessment & Plan: - BL arms - Aquaphor and zinc started last night, today sxs are improved. Code(s): R21 - RASH AND OTHER NONSPECIFIC SKIN ERUPTION (22) Microcytic anemia Current Visit: Yes Status: Acute Assessment & Plan: - Iron labs pending - F/U OP with PCP - Iron sat low - Started ferrous sulfate daily Code(s): D50.9 - IRON DEFICIENCY ANEMIA, UNSPECIFIED (23) Pre-diabetes Current Visit: Yes Status: Acute Assessment & Plan: - Started metformin 500mg BID D/C plan of care time > 50 minutes Code(s): R73.03 - PREDIABETES - Discharge Discharge Date: 07/01/25 Disposition: Home, Self-Care Condition: Fair Prescriptions: New Spironolactone 25 mg [Aldactone 25 MG] 25 mg PO DAILY 30 Days #30 tablet Amlodipine Besylate 5 mg [Norvasc 5 mg] 10 mg PO QAM 30 Days #30 tablet Lisinopril 20 mg [Zestril 20 MG] 40 mg PO DAILY 30 Days #60 tablet Terazosin HCl 2 mg PO HS 30 Days #30 cap Metformin HCl 500 mg [Glucophage 500 MG] 500 mg PO BIDWM 30 Days #60 tablet Torsemide 20 mg [Demadex 20 mg] 20 mg PO DAILY 30 Days #30 tablet Ferrous Sulfate 325 mg [Feosol 325 mg] 325 mg PO DAILY 30 Days #30 tablet Discontinued Ibuprofen 200 mg [Motrin 200 mg] 800 mg PO Q4HPRN PRN PRN Reason: Pain diphenhydrAMINE HCL [Sleep Aid] 100 mg PO HS Pamabrom [Diurex Max] 50 mg PO Q5H PRN PRN Reason: swelling Outpatient Orders: Sleep Study Facility: [facility], Location: RESPIRATORY THERAPY Additional Instructions: * Do not take any NSAIDS that includes IBP and Aleve. * Keep a log of Blood pressure readings daily and take to your upcoming appointment with your PCP. * Follow up with cardiology as scheduled. Follow up with: ROOPA RAMESH [ACTIVE STAFF, FAMILY PRACTICE] - 07/07/25 9:00 am
[2025-07-01 12:49] LABS: Iron 40 ug/dL (37-170); TIBC 423 ug/dL (265-462)
[2025-07-01 13:47] LABS: Ferritin 22.8 ng/mL (6.24-137)
--- NOTE | 2025-07-01 14:52 | XRAY ---
CLINICAL HISTORY: R/O pheochromocytomia/ elevated BP COMPARISON: No prior studies available for comparison. TECHNIQUE: CT of the abdomen and pelvis was performed with and without contrast using the following protocol: axial images with reconstructed coronal and sagittal images. 80 cc Isovue 370 IV contrast was administered. One of the following dose reduction techniques was utilized for this exam: automated exposure control, adjustment of the mA and/or kV according to patient size, and use of iterative reconstruction. FINDINGS: Abdomen: Liver: Mild hepatomegaly. The liver is normal in shape and density. No focal lesions, cysts, or masses were identified. Hepatic vasculature and biliary ducts are unremarkable. Gallbladder and Biliary System: The gallbladder is normal in size and shape. No wall thickening, pericholecystic fluid, or gallstones were identified. The common bile duct is normal in caliber without dilation. Pancreas: The pancreatic head, body, and tail are visualized and appear normal in size and density. No pancreatic masses or calcifications were noted. The pancreatic duct is not dilated. Spleen: Normal in size, shape, and density. No splenic lesions or masses were identified. Appendix: The appendix is normal in size without periappendiceal fat stranding and without an appendicolith. No evidence of appendiceal abscess or perforation. Kidneys and Adrenal Glands: Both kidneys are normal in size, shape, and position. Cortical thickness is within normal limits. A hypovascular inferior pole left renal mass measuring 71 x 74 x 99 mm. A small right renal cyst. Bilateral non-obstructing renal calculi. No hydronephrosis. Adrenal glands are unremarkable with no evidence of masses or hyperplasia. Pelvis: Urinary Bladder: Normal in contour and wall thickness. No intraluminal lesions identified. Uterus: Normal in size and contour. No masses or abnormal thickening. Ovaries: No gross abnormalities noted. Vagina: Normal in contour and wall thickness. Cervix: No evidence of mass or abnormal thickening. Peritoneal and Retroperitoneal Structures: No free fluid or abnormal fluid collections were identified within the abdomen or pelvis. No lymphadenopathy was noted. Bowel: The visualized bowel loops are normal in caliber and appearance. No evidence of bowel obstruction or wall thickening. Bones and Soft Tissues: Pelvic bones and soft tissues are unremarkable. No fractures or abnormal masses were identified. Subcutaneous fat stranding and skin thickening involving the abdominal wall and flanks. IMPRESSION: 1. Adrenal glands are unremarkable with no evidence of masses. 2. A left renal hypovascular mass, concerning for malignancy. 3. Subcutaneous fat stranding and skin thickening involving the abdominal wall and flanks. 4. Bilateral non-obstructing renal calculi. 5. Mild hepatomegaly. Electronically Signed by: Dwayne Flores MD. (07/01/2025 14:51:20 EST)
[2025-07-02] MEDS ORDERED: FEOSOL 325 MG PO SCH (10:00)
[2025-07-05 17:11] LABS: Renin Activity, Plasma 1.576 ng/mL/hr (0.167-5.380)
== END 2025-07-01 14:48 | disposition home or self-care (01) ==
LOC: ED 10:24 → MED SURG 16:10
PROVIDERS: ADMIT Internal Medicine; ATTEND Internal Medicine
DX: I11.0 Hypertensive heart disease with heart failure (principal); I50.9 Heart failure, unspecified; N39.0 Urinary tract infection, site not specified; D72.829 Elevated white blood cell count, unspecified; R74.01 Elevation of levels of liver transaminase levels; N17.9 Acute kidney failure, unspecified; G47.33 Obstructive sleep apnea (adult) (pediatric); R73.9 Hyperglycemia, unspecified; K76.0 Fatty (change of) liver, not elsewhere classified; R00.0 Tachycardia, unspecified; F17.200 Nicotine dependence, unspecified, uncomplicated; G47.00 Insomnia, unspecified; R51.9 Headache, unspecified; G89.29 Other chronic pain; E66.01 Morbid (severe) obesity due to excess calories; Z68.43 Body mass index [BMI] 50.0-59.9, adult; R73.03 Prediabetes; E87.6 Hypokalemia; R22.1 Localized swelling, mass and lump, neck; I16.1 Hypertensive emergency; R21 Rash and other nonspecific skin eruption; D50.9 Iron deficiency anemia, unspecified; Z79.899 Other long term (current) drug therapy